=== PATIENT | male | born 1945 | race Caucasian/White ===

== ENCOUNTER → 2020-07-07 12:31 | Outpatient (CLI) | payer MEDICARE, OTHER, SELFPAY ==
[2020-07-07 13:19] LABS: Hemoglobin A1C% w Est Avg Glu 5.6 % (4.0-6.0)
[2020-07-07 14:02] LABS: Alanine Aminotransferase 29 IU/L (<50); Albumin 4.1 g/dL (3.5-5.0); Albumin Globulin Ratio 1.9 (1.0-2.8); Alkaline Phosphatase 69 U/L (38-126); Aspartate Aminotransferase 27 IU/L (17-59); Bilirubin Total 1.1 mg/dL (0.2-1.3); Blood Urea Nitrogen 22 mg/dL (9-20); Calcium 9.4 mg/dL (8.4-10.2); Carbon Dioxide 29 mmol/L (22-32); Chloride 106 mmol/L (98-107); Cholesterol 148 mg/dL (140-199); Estimated Glomerular Filt Rate > 60.0 mL/min (>60); Globulin 2.2 g/dL (1.7-4.1); Glucose 117 mg/dL (80-110); HDL Cholesterol 54 mg/dL (40-60); HEMOLYSIS < 15 (0-50); LDL Cholesterol Calculated 69 mg/dL (<100); Potassium 3.9 mmol/L (3.4-5.1); Sodium 138 mmol/L (137-145); Total Protein 6.3 g/dL (6.3-8.2); Triglycerides 123 mg/dL (35-150); Uric Acid 4.5 mg/dL (3.5-8.5)
[2020-07-07 16:16] LABS: Microalbumin Urine Random < 0.6 mg/dL (0-1.6)
== END ==
PROVIDERS: PCP Internal Medicine; Referring Provider Internal Medicine; Visit Provider Internal Medicine
DX: I10 Essential (primary) hypertension (principal); E78.5 Hyperlipidemia, unspecified; E11.9 Type 2 diabetes mellitus without complications; M10.9 Gout, unspecified
CPT/HCPCS: 36415; 80053; 80061; 82043; 82570; 83036; 84550

== ENCOUNTER → 2020-10-08 10:55 | Outpatient (CLI) | payer MEDICARE, OTHER, SELFPAY ==
[2020-10-08] MEDS: COVID-19 VACC #1, MRNA(MOD) 100 MCG/0.5 ML VIAL IM (10:58)
== END ==
PROVIDERS: PCP Internal Medicine; Visit Provider Internal Medicine
DX: Z23 Encounter for immunization (principal)
CPT/HCPCS: 0011A; 91301

== ENCOUNTER → 2020-11-05 12:07 | Outpatient (CLI) | payer MEDICARE, OTHER, SELFPAY ==
[2020-11-05] MEDS: COVID-19 VACC #2, MRNA(MOD) 100 MCG/0.5 ML VIAL IM (12:19)
== END ==
PROVIDERS: PCP Internal Medicine; Visit Provider Internal Medicine
DX: Z23 Encounter for immunization (principal)
CPT/HCPCS: 0012A; 91301

== ENCOUNTER → 2021-06-02 11:28 | Outpatient (CLI) | payer MEDICARE, OTHER, SELFPAY ==
--- NOTE | 2021-06-02 | DI.RAD.S_ITS ---
PROCEDURE: XR HAND LT MIN 3V INDICATIONS: left hand pain TECHNIQUE: 3 views of the hand(s) acquired. COMPARISON: None. FINDINGS: Bones: No fractures or dislocations. Carpal bones are normally aligned. No suspicious bony lesions. Severe 3rd PIP joint space narrowing with periarticular osteophyte formation. Central and juxta-articular lucencies are present and scattered juxta-articular lucencies are seen involving multiple interphalangeal joints. Soft tissues: No suspicious soft tissue calcifications. IMPRESSION: Severe 3rd PIP joint space narrowing and there are central and juxta-articular lucency suspicious for bony erosions and erosive erosions are also seen scattered throughout the interphalangeal joints. Inflammatory arthropathy cannot be excluded. Dictated by: Red Hyde [facility] Interpreted: Rob Pate MD on 06/02/2021 at 12:59 Transcribed by: MADI on 06/02/2021 at 13:01 Approved by: Rob Pate M.D. on 06/02/2021 at 17:21
== END ==
PROVIDERS: PCP Internal Medicine; Referring Provider Internal Medicine; Visit Provider Internal Medicine
DX: M79.642 Pain in left hand (principal)
CPT/HCPCS: 73130

== ENCOUNTER → 2021-09-05 09:25 | Outpatient (CLI) | payer MEDICARE, OTHER, SELFPAY ==
[2021-09-05 10:54] LABS: COVID19 -Nasal RAPID Negative (Negative)
== END ==
PROVIDERS: PCP Internal Medicine; Visit Provider Physician Assistant
DX: Z20.822 Contact with and (suspected) exposure to COVID-19 (principal)
CPT/HCPCS: 87635; C9803

== ENCOUNTER 2021-09-07 07:17 | Day surgery (SDC) | payer MEDICARE, OTHER, SELFPAY ==
--- NOTE | 2021-09-06 16:16 | PM.PREOP ---
Pre-operative Note COVID-19 COVID-19 status: Negative Interval Note History & Physical reviewed/Exam performed by Physician: Yes Changes to H&P: No H&P completed within 30 days and has changed as indicated here:: Fasting glucose is 111.
--- NOTE | 2021-09-06 16:17 | P.OP_ITS ---
Operative Date/Time/Diagnoses Date of procedure: 09/07/21 Time of procedure: 08:45 Procedure & Clinicians Procedure: Preoperative diagnoses: 1. Left complex surgery with use of capsular dye. 2. Mature or advanced nuclear sclerotic and cortical cataract with poor visibility of the anterior capsule increasing surgical risks of complications. 3. 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 4. Diabetes without retinopathy 5. Hypertension 6. Frozen right shoulder status post previous surgery Postoperative diagnoses: 1. Left Complex surgery with use of capsular dye, 2. Placement of a posterior chamber intraocular lens implant. Surgeon: Maria Fernanda Lamb MD Complications: none Specimen: None Implant: DIBOO+20.0 Blood loss: None Anesthesia: Retrobulbar with monitored standby. Description of procedure: Dictated by: Maria Fernanda Lamb MD Post operative diagnoses: 1. Left cataract removed with use of capsular dye . 2. Placement of a posterior chamber intraocular lens. Procedure: Phacoemulsification with posterior chamber intraocular lens implant Surgeon: Maria Fernanda Lamb MD Blood loss: None Anesthesia: Retrobulbar with monitored standby Description of procedure: Patient has presented with decreased vision due to cataract which is affecting activities of daily living especially driving. The patient wants surgery to improve vision. They understand the extra risk of surgery during the COVID-19 epidemic and wished to proceed. The patient has tested negative for active COVID-19 virus within 72 hours of the procedure. 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 The patient was taken to the operating room and given IV sedation. A retrobulbar block consisting of 6 cc of 2% xylocaine without epinephrine mixed half and half with 0.5% Marcaine with 1 cc of hyaluronidase added is placed between the medial and lateral 1/3 of the inferior orbital rim. He did require extra sedation and a peribulbar block was given for safety. Additionally topical lidocaine gel was placed on the surface of the eye for extra comfort. The eye is manually massaged for 30 sec, prepped using Betadine solution, and draped in the usual sterile fashion. Temporal approach was made, a 1 mm side-port incision was performed 90 degrees from the planned corneal wound. Phenylephrine 1.5% mixed with 1% xylocaine 0.2 cc was placed into the anterior chamber. An air bubble was placed and capsular blue dye was placed to improve visibility of the anterior capsule. The dye was irrigated out to reduce bubbles. Endocoat followed by Keri was then placed. A 2.6 mm clear incision with a 2.6 mm blade was placed. A 360 degree capsulorrhexis style capsulotomy was then performed with a cystitome needle on a Healon greatly aided by the capsular dye. Hydrodelineation and hydrodissection were performed. The phacoemulsification unit is introduced, and sculpting used to groove the central lens. It is then removed in chopping mode. Epi nucleus is removed with epinuclear mode and irrigation aspiration was used to remove the peripheral cortex. The posterior capsule is polished. He did have restless leg syndrome during the procedure as well as some slight chest discomfort extra relaxation medication was given with comfort. The intraocular lens is selected, inspected, power confirmed, and placed in the posterior chamber. The wound was stromally hydrated and tested for leaks, there was none and was left sutureless. Intracameral moxifloxacin 0.1 cc was placed into the anterior chamber. Kenalog 0.2 cc was placed in the superior subconjunctival space. A drop of antibiotic and was placed and the eye was patched and shielded. The patient was stable and returned to the recovery room in excellent condition. He had no chest discomfort after the procedure. Dictated by: Maria Fernanda Lamb MD Copy to: [facility] Same procedure as scheduled: Yes
[2021-09-07 07:55] VITALS: BP 140/74; PULSE 61; RESP 16; TEMP 36.8; O2SAT 99; BMI 25.1
[2021-09-07] MEDS: PROPARACAINE 0.5% OPHTH SOL 2 DROPS EYE-OP (08:00)
[2021-09-07] MEDS: CATARACT EYE COMPOUND (10 DROPS/SYRINGE) 3 DROPS EYE-OP (08:08)
[2021-09-07] MEDS: LIDOCAINE 2% 4 ML, BUPIVACAINE 0.5% (PF) 4 ML, HYALURONIDASE 150 UNIT INJ (09:09)
[2021-09-07] MEDS: ERYTHROMYCIN OPHTH 1 GM OINT 1 APPLIC EYE-LEFT (09:21)
[2021-09-07] MEDS: TRYPAN BLUE 0.5 ML SYRINGE INJ (09:22)
[2021-09-07] MEDS: MOXIFLOXACIN INJ 4 MG/0.8 ML VIAL 0.5 MG EYE-OP (09:22)
[2021-09-07] MEDS: HYALURONATE SODIUM 30 MG-10 MG/ML SYRINGES 1 BOX INTRAOCULA (09:22)
[2021-09-07] MEDS: TRIAMCINOLONE 50 MG/5 ML VIAL INJ (09:23)
[2021-09-07] MEDS: BALANCED SALT IRRIG SOLN NO.2 500 ML, EPINEPHrine 1 MG IRR (09:23)
[2021-09-07] MEDS: PHENYLEPHRINE/LIDOCAINE VIAL (OR) 0.2 ML EYE-OP (09:23)
[2021-09-07] MEDS: LIDOCAINE 2% (GLYDO) 6 ML GEL TOP (09:24)
[2021-09-07 09:50] VITALS: BP 136/78; PULSE 62; RESP 16; TEMP 36.4; O2SAT 97
== END 2021-09-07 10:17 | disposition home or self-care (01) ==
LOC: OR 07:19
PROVIDERS: PCP Internal Medicine; Referring Provider Ophthalmology; Visit Provider Ophthalmology
PROC: (CPT 66984; principal; 2021-09-07 08:45)
DX: H25.812 Combined forms of age-related cataract, left eye (principal); E11.9 Type 2 diabetes mellitus without complications; I10 Essential (primary) hypertension
CPT/HCPCS: 66984; 82962; J0171; J2250; J2704; J3010; J3301; J3470

== ENCOUNTER → 2021-09-28 12:14 | Outpatient (CLI) | payer MEDICARE, OTHER, SELFPAY ==
[2021-09-28 14:17] LABS: Prostate Specific Antigen Scrn 6.58 ng/mL (0.1-4.0)
== END ==
PROVIDERS: PCP Internal Medicine; Referring Provider Specialist; Visit Provider Specialist
DX: R97.20 Elevated prostate specific antigen [PSA] (principal)
CPT/HCPCS: 36415; 84153; G0103

== ENCOUNTER → 2021-10-31 10:02 | Outpatient (CLI) | payer MEDICARE, OTHER, SELFPAY ==
[2021-10-31 11:33] LABS: COVID19 -Nasal RAPID Negative (Negative)
== END ==
PROVIDERS: PCP Internal Medicine; Visit Provider Family Medicine Sleep Medicine
DX: Z20.822 Contact with and (suspected) exposure to COVID-19 (principal)
CPT/HCPCS: 87635; C9803

== ENCOUNTER 2021-11-14 13:13 | Emergency (ER) | payer MEDICARE, OTHER, SELFPAY ==
[2021-11-14 13:33] VITALS: BP 137/69; PULSE 56; RESP 16; TEMP 36.1; O2SAT 97; BMI 24.3
--- NOTE | 2021-11-14 13:35 | DI.CT.S_ITS ---
PROCEDURE: CT HEAD/BRAIN WO CON INDICATIONS: fall and hit head forehead TECHNIQUE: Noncontrast 4.5 mm thick angled axial sections acquired from the foramen magnum to the vertex, with coronal and sagittal reformats. For radiation dose reduction, the following was used: automated exposure control, adjustment of mA and/or kV according to patient size. COMPARISON: None. FINDINGS: Image quality: Excellent. CSF spaces: Basal cisterns are patent. No extra-axial fluid collections. Ventricles are normal in size and shape. Brain: No midline shift. No intracranial masses or hemorrhage. Kapoor-white matter interface is normal. Skull and face: Calvarium and visualized facial bones are intact, without suspicious lesions. Sinuses: Visualized sinuses and mastoids are clear. IMPRESSION: No acute intracranial pathology demonstrated. Dictated by: Dylon Aj M.D. on 11/14/2021 at 13:52 Approved by: Dylon Aj M.D. on 11/14/2021 at 13:53
[2021-11-14 16:33] VITALS: BP 135/85; PULSE 60; RESP 16; O2SAT 97
--- NOTE | 2021-11-14 16:33 | ED.FALL ---
HPI - Fall <Isidro Yin PA-C - Last Filed: 11/14/21 16:48> General Chief Complaint: Fall Stated Complaint: Fall, Hit Head Time Seen by Provider: 11/14/21 15:24 History of Present Illness HPI Narrative: 76-year-old male presents to the ED status post a head injury sustained prior to arrival today. Patient states he was hiking with his , when he sustained a mechanical trip and fall over some zena. Patient had a head strike to the right parietal side of the head. Denies loss of consciousness. Patient is not on blood thinners. Patient's tetanus is current. Patient endorses some abrasions to his right hand and right elbow. Denies the numbness, tingling, weakness. Denies nausea, vomiting. Denies lightheadedness, dizziness, syncope. Related Data Home Medications Medication Instructions Recorded Confirmed allopurinol PO 08/18/21 10/05/21 atorvastatin 40 mg tablet 40 mg PO DAILY 08/18/21 10/05/21 cholecalciferol (vitamin D3) 125 125 mcg PO DAILY 08/18/21 10/05/21 mcg (5,000 unit) capsule colchicine 0.6 mg capsule 0.6 mg PO DAILY 08/18/21 10/05/21 metformin 500 mg tablet 500 mg PO BID 08/18/21 10/05/21 metoprolol succinate 25 mg 25 mg PO DAILY 08/18/21 10/05/21 tablet,extended release 24 hr lisinopril-hydrochlorothiazide 20 mg PO 09/07/21 10/05/21 Allergies Allergy/AdvReac Type Severity Reaction Status Date / Time No Known Drug Allergies Allergy Unverified 10/05/21 14:36 Review of Systems <Isidro Yin PA-C - Last Filed: 11/14/21 16:48> Review of Systems Narrative: Head injury to right-side of head. Abrasions on right hand and right elbow. No numbness, tingling, weakness fever ROS Unobtainable: All systems reviewed & are unremarkable except as noted in HPI and below Constitutional Constitutional: Denies chills, Denies fatigue, Denies fever(s), Denies frequent falls, Denies lethargy and Denies weakness Eyes Eyes: Denies change in vision, Denies eye discharge, Denies irritation and Denies loss of vision ENT Ears, Nose, Mouth, and Throat: Denies change in voice, Denies dizziness, Denies neck pain, Denies sore throat and Denies throat swelling Cardiovascular Cardiovascular: Denies chest pain, Denies irregular heart rhythm, Denies lightheadedness, Denies palpitations, Denies dyspnea, Denies dyspnea on exertion and Denies orthopnea Respiratory Respiratory: Denies cough, Denies dyspnea, Denies dyspnea on exertion and Denies wheezing Gastrointestinal Gastrointestinal: Denies abdominal pain, Denies change in bowel habits, Denies diarrhea, Denies nausea and Denies vomiting Genitourinary Genitourinary: Denies hematuria, Denies flank pain, Denies urinary incontinence and Denies urinary urgency Musculoskeletal Musculoskeletal: Denies back pain, Denies muscle weakness, Denies neck pain, Denies numbness and Denies tingling Integumentary/Breasts Skin/Breast: Denies pruritus, Denies erythema, Denies rash and Denies wounds Neurologic Neurologic: Denies behavioral changes, Denies confusion, Denies dizziness, Denies frequent falls, Denies loss of vision, Denies numbness, Denies tingling and Denies weakness Psychiatric Psychiatric: Denies anxiety, Denies behavioral changes, Denies confusion, Denies depression, Denies homicidal ideation and Denies suicidal ideation Endocrine Endocrine: Denies fatigue, Denies flushing and Denies palpitations Hematologic/Lymphatic Hematologic/Lymphatic: Denies easy bruising Allergic/Immunologic Allergic/Immunologic: Denies urticaria, Denies throat swelling and Denies wheezing Patient History <Isidro Yin PA-C - Last Filed: 11/14/21 16:48> Medical History Arthritis BPH w urinary obs/LUTS Diabetes Elevated PSA Gout Hypercholesteremia Hypertension Male circumcision Surgical History H/O repair of rotator cuff Family History Father Cancer Social History household members: spouse Smoking Status: Former smoker alcohol intake: current Smoking Status: Former smoker alcohol intake frequency: 0-2 drinks per day Substance Use Type: marijuana Exam <Isidro Yin PA-C - Last Filed: 11/14/21 16:48> Initial Vital Signs Initial Vital Signs: Vital Signs Temperature 97.0 F L 11/14/21 13:33 Pulse Rate 56 L 11/14/21 13:33 Respiratory Rate 16 11/14/21 13:33 Blood Pressure 137/69 11/14/21 13:33 Pulse Oximetry 97 11/14/21 13:33 Const General: cooperative, healthy appearing and comfortable [facility] Head: abrasion, No Sepulveda's sign, No hematoma, No laceration, No palpable skull fracture and No raccoon eyes Ears: hearing grossly normal bilaterally Nose: external nose normal Face and sinus: normal facial exam Throat: posterior oropharynx normal Eyes General: appearance normal, both eyes and all related structures Neck Neck: normal visual inspection Chest Chest: normal inspection of the chest Resp Effort & Inspection: normal respiratory effort Auscultation: clear to auscultation bilaterally Cardio Rate: regular rate Rhythm: regular rhythm Back/Spine/Pelvis Other: No midline tenderness to palpation. Neuro General: patient alert, patient awake, patient oriented x3 and CN's II-XI intact bilaterally Cranial Nerves: PERRL Gait: normal gait Motor: muscle tone normal throughout Sensory Exam: no sensory deficits noted Psych Appearance: grossly normal Mental Status: mental status grossly normal Course <CHARLETTE Cole Last Filed: 11/14/21 16:48> Orders Ordered: ED Orders 11/14/21 13:35 CT head/brain wo con Stat Vital Signs Vital signs: Vital Signs - 8 hr 11/14/21 16:33 Pulse Rate 60 Respiratory Rate 16 Blood Pressure 135/85 Pulse Oximetry 97 MDM - Fall <CHARLETTE Cole Last Filed: 11/14/21 16:48> Imaging Data CT scan - head: Radiologist's Impression: PROCEDURE:? CT HEAD/BRAIN WO CON ? INDICATIONS:? fall and hit head forehead ? TECHNIQUE:? Noncontrast 4.5 mm thick angled axial sections acquired from the foramen magnum to the vertex, with coronal and sagittal reformats.? For radiation dose reduction, the following was used:? automated exposure control, adjustment of mA and/or kV according to patient size.? ? COMPARISON:? None. ? FINDINGS:? Image quality:? Excellent.? ? CSF spaces:? Basal cisterns are patent.? No extra-axial fluid collections.? Ventricles are normal in size and shape.? ? Brain:? No midline shift.? No intracranial masses or hemorrhage.? Kapoor-white matter interface is normal.? ? Skull and face:? Calvarium and visualized facial bones are intact, without suspicious lesions.? ? Sinuses:? Visualized sinuses and mastoids are clear.? ? IMPRESSION:? No acute intracranial pathology demonstrated. ? ? Dictated by: Dylon Aj M.D. on 11/14/2021 at 13:52 ? ? Approved by: Dylon Aj M.D. on 11/14/2021 at 13:53 ? MDM Narrative Medical decision making narrative: 76-year-old male presents to the ED status post a head injury sustained prior to arrival today. Patient states he was hiking with his , when he sustained a mechanical trip and fall over some zena. Concern for intracranial hemorrhage versus fractures versus concussion. Head CT does not show acute findings. Counseled patient on concussion. ED return precautions discussed. Patient verbalized understanding. Discharge patient home. Discharge Plan Departure Patient Disposition: Home Clinical Impression: Head injury Instructions: DI for Concussion, How to Prevent Falls Activity Restrictions/Additional Instructions: You were evaluated in the ED today for a head injury. Your CT head did not show any fractures or brain bleeds. Your symptoms are likely due to a concussion. We recommend both cognitive and physical rest for the next few days until your symptoms resolved. It is common for people with concussions to experience intermittent or sporadic vomiting, headache, fatigue, sleepiness, irritability, depression. Please follow-up with your PCP as soon as possible for postconcussion management. Please return to the ED if you have uncontrollable nausea and vomiting, worsening headache, confusion, change in mental status. Prescriptions: No Action lisinopril-hydrochlorothiazide 20 mg PO 0RF Rx Instructions: 20/25 mg. Patient takes half dose allopurinol PO 0RF colchicine 0.6 mg capsule 0.6 mg PO DAILY 0RF metformin 500 mg tablet 500 mg PO BID 0RF atorvastatin 40 mg tablet 40 mg PO DAILY 0RF metoprolol succinate 25 mg tablet extended release 24 hr 25 mg PO DAILY 0RF cholecalciferol (vitamin D3) 125 mcg (5,000 unit) capsule 125 mcg PO DAILY 0RF Referrals: Brock Ford MD [Primary Care Provider] -
== END 2021-11-14 16:15 | disposition home or self-care (01) ==
PROVIDERS: Emergency Provider Student in an Organized Health Care Education/Training Program; PCP Internal Medicine
DX: S09.90XA Unspecified injury of head, initial encounter (principal); Z87.891 Personal history of nicotine dependence; W18.09XA Striking against other object with subsequent fall, initial encounter; Y93.01 Activity, walking, marching and hiking
CPT/HCPCS: 70450; 99283; 99284

== ENCOUNTER → 2021-11-18 10:27 | Outpatient (CLI) | payer MEDICARE, OTHER, SELFPAY ==
[2021-11-18 13:50] LABS: COVID19 -Nasal RAPID Negative (Negative)
== END ==
PROVIDERS: PCP Internal Medicine; Visit Provider Nurse Practitioner Family
DX: Z20.822 Contact with and (suspected) exposure to COVID-19 (principal)
CPT/HCPCS: 87635; C9803

== ENCOUNTER 2021-11-21 06:31 | Day surgery (SDC) | payer MEDICARE, OTHER, SELFPAY ==
--- NOTE | 2021-10-31 17:41 | PM.PREOP ---
Pre-operative Note COVID-19 COVID-19 status: Negative Criteria for continued procedure: Expected advancement of disease process, Possibility delay results in more complex future surgery or treatment, Increased loss of function, Delay expected to result in less-positive ultimate med/surg outcome and Non-surgical alternatives not available or appropriate per current SOC Interval Note History & Physical reviewed/Exam performed by Physician: Yes Changes to H&P: No H&P completed within 30 days and has changed as indicated here:: Holding prostate medication for surgery. Improved shoulder function. Glucose fasting is 108.
--- NOTE | 2021-10-31 17:41 | PM.OP.1 ---
Operative Date/Time/Diagnoses Date of procedure: 11/21/21 Time of procedure: 07:45 Procedure & Clinicians Procedure: Preoperative diagnoses: 1. Right complex surgery with use of capsular dye. 2. Mature or advanced nuclear sclerotic and cortical cataract with poor visibility of the anterior capsule increasing surgical risks of complications. 3. Prostate sympathomemetic medications increasing the risk of floppy iris syndrome. 4. Restless leg syndrome at previous cataract surgery. 5. Recent right shoulder surgery. Postoperative diagnoses: 1Right Complex surgery with use of capsular dye, 2. Placement of a posterior chamber intraocular lens implant. Surgeon: Maria Fernanda Lamb MD Complications: none Specimen: None Implant: DIBOO+19.5 Blood loss: None Anesthesia: Retrobulbar with monitored standby. Description of procedure: Dictated by: Maria Fernanda Lamb MD Post operative diagnoses: 1. Right cataract removed with use of capsular dye . 2. Placement of a posterior chamber intraocular lens. 3. 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 4. Diabetes without retinopathy 5. Prostatic hypertrophy requiring treatment 6. Hypertension 7. Recent re-operation for right shoulder restriction after previous surgery, now improved 8. Restless leg syndrome Procedure: Complex Phacoemulsification with posterior chamber intraocular lens implant Surgeon: Maria Fernanda Lamb MD Blood loss: None Anesthesia: Retrobulbar with monitored standby Description of procedure: Patient is a diabetic who has presented with decreased vision due to cataract which is affecting activities of daily living especially driving. The patient wants surgery to improve vision. He understands the extra risk of surgery during the COVID-19 epidemic and wished to proceed. He has difficulty driving and with imbalance since his recent left cataract surgery. This surgery has been delayed due to recent shoulder surgery and COVID restrictions. It was further delayed by the hospital due to a shortage of necessary intraoperative medications needed and humidity problems. All needed supplies are now available and he wishes to proceed as he need to be started on prostate medications which will increase his introperative risk of floppy iris. He has been limiting his prostate medication as he is floppy iris syndrome and he would like to resume these as soon as possible. The patient has tested negative for active COVID-19 virus within 72 hours of the procedure. He also had restless leg syndrome during his last surgery. The patient was taken to the operating room and given IV sedation. A retrobulbar block consisting of 6 cc of 2% xylocaine without epinephrine mixed half and half with 0.5% Marcaine with 1 cc of hyaluronidase added is placed between the medial and lateral 1/3 of the inferior orbital rim. The eye is manually massaged for 30 sec, prepped using Betadine solution, and draped in the usual sterile fashion. Temporal approach was made, a 1 mm side-port incision was performed 90 degrees from the planned corneal wound. Phenylephrine 1.5% mixed with 1% xylocaine 0.2 cc was placed into the anterior chamber. [An air bubble was placed and capsular blue dye was placed to improve visibility of the anterior capsule. The dye was irrigated out to reduce bubbles. ]Endocoat followed by Healon was then placed. A 2.6 mm clear incision with a 2.6 mm blade was placed. A 360 degree capsulorrhexis style capsulotomy was then performed with a cystitome needle on a Healon greatly aided by the capsular dye. Hydrodelineation and hydrodissection were performed. The phacoemulsification unit is introduced, and sculpting used to groove the central lens. It is then removed in chopping mode. Epi nucleus is removed with epinuclear mode and irrigation aspiration was used to remove the peripheral cortex. The posterior capsule is polished. The intraocular lens is selected, inspected, power confirmed, and placed in the posterior chamber. The wound was stromally hydrated and tested for leaks, there was none and was left sutureless. Intracameral moxifloxacin 0.1 cc was placed into the anterior chamber. Kenalog 0.2 cc was placed in the superior subconjunctival space. A drop of antibiotic and was placed and the eye was patched and shielded. The patient was stable and returned to the recovery room in excellent condition. Dictated by: Maria Fernanda Lamb MD Copy to: [facility] cataract Same procedure as scheduled: Yes
--- NOTE | 2021-10-31 17:46 | PM.PREOP ---
Pre-operative Note Interval Note H&P completed within 30 days and has changed as indicated here:: Fasting glucose is
--- NOTE | 2021-11-20 17:18 | P.HP_ITS ---
History of Present Illness History of Present Illness Date Patient Seen: 11/21/21 Time Patient Seen: 07:15 Date of Onset of Symptoms: 09/19/20 Chief complaint: RIGHT CATARACT Narrative: Patient is a 76-year-old male who has had rapid decrease in vision in his right the last 1-2 years. He feels he is having difficulty with glare and driving and also unequal vision since his left cataract surgery several months ago. This surgery was postponed due to the need for shoulder surgery revision which she has now undergone successfully as well as several delays due to restrictions in surgery due to COVID 19 protocols as well as intraoperative medications shortages. He is to require increased prostatic sympathomimetic medications which will increase his surgical risk with further delay and he wishes to proceed. He is a diabetic with high cholesterol and hypertension and also enlarged prostate. He has taken medications which increases risk at cataract surgery by causing floppy iris. He also had restless legs syndrome and is previous surgery. He is a former s smoker. He has no significant family history he does not follow his glucose closely and is going to be checked for him at the time of surgery. His current vision is 2100 right eye without correction with pinhole to 20 40 left eye 2019 5+2 with and without correction pupils are normal intra-ocular pressure is 14 right eye 13 left eye there was no corneal stain he has advanced right cataract with 3+ nuclear sclerosis and cortical changes. Left eye pseudophakia he dilates well his cup-to-disc is 0.3 in both eyes he has no diabetic retinopathy he has no macro grade distortion testing was done showing no macular edema in either eye and need for an intra- ocular lens with his requested distance target. He understands there is risk of floppy iris which could cause him to have an irregular pupil or other complications and that they are now 2020 guarantees after surgery. He wishes to proceed. His medications are lisinopril 40 mg a day colchicine 0.6 mg a day al lopurinol 300 mg a day metformin 500 mg a day metoprolol succinate ER 25 mg a day atorvastatin 40 mg a day lisinopril 20-25 mg a day of fuse is in which he started August 18, 2021 10 mg a day diclofenac preoperative drop right eye 4 times a day TobraDex eye drop right eye twice a day due to sensitivity to previous eye drops. Review of systems shows improved range of motion right shoulder after repeat surgery for adhesions no further shoulder procedures planned. Surgical plan is complex right cataract surgery with probable capsular dye and possible [place] ring with retrobulbar anesthetic. A distance intra- ocular target is chosen after IOL measurements in the office. Patient History Medical History Arthritis BPH w urinary obs/LUTS Diabetes Elevated PSA Gout Hypercholesteremia Hypertension Male circumcision Surgical History H/O repair of rotator cuff Family & Social History Family History Father Cancer Social History: household members spouse Tobacco & Substance use: Smoking Status Former smoker alcohol intake current alcohol intake frequency 0-2 drinks per day Substance Use Type marijuana Meds Home Medications and Allergies Home Medications Medication Instructions Recorded Confirmed Type allopurinol PO 08/18/21 10/05/21 History atorvastatin 40 mg tablet 40 mg PO DAILY 08/18/21 10/05/21 History cholecalciferol (vitamin D3) 125 125 mcg PO DAILY 08/18/21 10/05/21 History mcg (5,000 unit) capsule colchicine 0.6 mg capsule 0.6 mg PO DAILY 08/18/21 10/05/21 History metformin 500 mg tablet 500 mg PO BID 08/18/21 10/05/21 History metoprolol succinate 25 mg 25 mg PO DAILY 08/18/21 10/05/21 History tablet,extended release 24 hr lisinopril-hydrochlorothiazide 20 mg PO 09/07/21 10/05/21 History Allergies Allergy/AdvReac Type Severity Reaction Status Date / Time No Known Drug Allergies Allergy Unverified 10/05/21 14:36 Assessment & Plan Time Spent With Patient Critical Care time: I spent a total of [] minutes of critical care time on this patient's care today; this time is exclusive of procedural time.
[2021-11-21] MEDS: PROPARACAINE 0.5% OPHTH SOL 2 DROPS EYE-OP (06:55)
[2021-11-21] MEDS: CATARACT EYE COMPOUND (10 DROPS/SYRINGE) 3 DROPS EYE-OP (06:55)
[2021-11-21 07:13] VITALS: BP 141/77; PULSE 56; RESP 18; TEMP 36.5; O2SAT 100; BMI 25.1
[2021-11-21] MEDS: HYALURONATE SODIUM 30 MG-10 MG/ML SYRINGES 1 BOX INTRAOCULA (08:19)
[2021-11-21] MEDS: PHENYLEPHRINE/LIDOCAINE VIAL (OR) 0.2 ML EYE-OP (08:20)
[2021-11-21] MEDS: MOXIFLOXACIN INJ 4 MG/0.8 ML VIAL 0.5 MG EYE-OP (08:20)
[2021-11-21] MEDS: TRIAMCINOLONE 50 MG/5 ML VIAL INJ (08:21)
[2021-11-21] MEDS: LIDOCAINE 2% 4 ML, BUPIVACAINE 0.5% (PF) 4 ML, HYALURONIDASE 150 UNIT INJ (08:22)
[2021-11-21] MEDS: BALANCED SALT IRRIG SOLN NO.2 500 ML, EPINEPHrine 1 MG IRR (08:23)
[2021-11-21] MEDS: ERYTHROMYCIN OPHTH 1 GM OINT 1 APPLIC EYE-RIGHT (08:24)
[2021-11-21] MEDS: TRYPAN BLUE 0.5 ML SYRINGE INJ (08:24)
[2021-11-21 08:45] VITALS: BP 139/61; PULSE 68; RESP 16; TEMP 36.6; O2SAT 100
[2021-11-21 08:59] VITALS: BP 133/66; PULSE 58; RESP 16; TEMP 36.3; O2SAT 100
--- NOTE | 2021-11-21 09:53 | SUR.PHASEII ---
0900 Patient ready for discharge. called at 0850. She said she has some errands and will try to leave soon.
== END 2021-11-21 09:45 | disposition home or self-care (01) ==
LOC: OR 06:32
PROVIDERS: PCP Internal Medicine; Referring Provider Ophthalmology; Visit Provider Ophthalmology
PROC: (CPT 66984; principal; 2021-11-21 07:45)
DX: H25.811 Combined forms of age-related cataract, right eye (principal); G25.81 Restless legs syndrome; E11.9 Type 2 diabetes mellitus without complications; N40.0 Benign prostatic hyperplasia without lower urinary tract symptoms; I10 Essential (primary) hypertension; Z79.84 Long term (current) use of oral hypoglycemic drugs; Z79.899 Other long term (current) drug therapy
CPT/HCPCS: 66984; 82962; J0171; J2250; J2704; J3010; J3301; J3470

== ENCOUNTER → 2022-01-04 15:34 | Outpatient (CLI) | payer MEDICARE, OTHER, SELFPAY ==
--- NOTE | 2022-01-04 15:38 | DI.MRI.S_ITS ---
PROCEDURE: MR PELIS WO/W CON INDICATIONS: BPH TECHNIQUE: Coronal HASTE, axial T1 FSE with fat saturation, 3-plane nonbreath-hold T2 FSE. After the administration of contrast, dynamic axial, delayed axial and coronal VIBE or 2-D FLASH with fat saturation through the pelvis. Optional diffusion weighted imaging and ADC may be performed. COMPARISON: None. FINDINGS: Image quality: Diffusion weighted and dynamic contrast enhanced images are diagnostic. A few sequences degraded by artifact. Prostate: Gland size is 4.4 x 4.1 x 3.6 cm; ellipsoid gland volume is 34 mL. No foci of intrinsic T1 hyperintense signal to suggest hemorrhage. There are small BPH nodules. No significant foci of ADC hypointensity in the transitional zone. No suspicious foci of T2 hypointense signal. No PI-RADS 4 or 5 observations. Genitourinary system: Bladder wall thickness is normal. Distal ureters are non distended. Bowel and peritoneum: No pathologic free pelvic fluid. Inferior colon and small bowel loops are normal in caliber. Nodes and vessels: No pelvic or inguinal adenopathy by size criteria. Iliac vessels are normal in caliber. Soft tissues: Probable fat containing right inguinal hernia. Bones: Marrow demonstrates normal overall signal, without lesions to suggest metastases. IMPRESSION: 1. No PI-RADS 4 or 5 observations. 2. No adenopathy. 3. Prominent prostate gland. Dictated by: Stevo Joshi M.D. on 01/04/2022 at 17:50 Approved by: Stevo Joshi M.D. on 01/04/2022 at 17:57
== END ==
PROVIDERS: PCP Internal Medicine; Referring Provider Specialist; Visit Provider Specialist
DX: N40.1 Benign prostatic hyperplasia with lower urinary tract symptoms (principal); N13.8 Other obstructive and reflux uropathy; R97.20 Elevated prostate specific antigen [PSA]
CPT/HCPCS: 72197; A9579

== ENCOUNTER → 2022-01-13 14:09 | Outpatient (CLI) | payer MEDICARE, OTHER, SELFPAY ==
[2022-01-13 15:32] LABS: Prostate Specific Antigen 5.16 ng/mL (0.10-4.00)
== END ==
PROVIDERS: PCP Internal Medicine; Referring Provider Specialist; Visit Provider Specialist
DX: R97.20 Elevated prostate specific antigen [PSA] (principal)
CPT/HCPCS: 36415; 84153

== ENCOUNTER → 2022-02-07 08:04 | Outpatient (CLI) | payer MEDICARE, OTHER, SELFPAY ==
--- NOTE | 2022-02-07 | DI.US.S_ITS ---
PROCEDURE: US ABDOMEN COMPLETE INDICATIONS: ABDOMINAL PAIN TECHNIQUE: Real-time scanning was performed of the abdominal and retroperitoneal organs, with image documentation. COMPARISON: None. FINDINGS: Liver: Liver is normal in size and homogeneous in echotexture. Gallbladder: Gallbladder is sonographically normal. No gallstones. No gallbladder wall thickening. No pericholecystic fluid. No sonographic Carvajal sign. Biliary ducts: Intrahepatic bile ducts are non-dilated. Extrahepatic bile duct caliber measures 4.4 mm. Normal is 6-7 mm or less in diameter, or 10 mm or less post-cholecystectomy. Pancreas: Not visualized due to bowel gas and cannot be evaluated. Spleen: Spleen is normal in size and homogeneous in echotexture. Kidneys: Kidneys are normal in size and echotexture. Right kidney measures 11.0 cm long; left kidney measures 11.0 cm long. No hydronephrosis or nephrolithiasis. No solid masses. Aorta: Visualized aorta is normal in caliber at less than 3 cm. Iliacs: Proximal common iliac arteries are normal in caliber at less than 2.5 cm. IVC: Intrahepatic inferior vena cava is patent. Miscellaneous: No free abdominal fluid. IMPRESSION: Normal abdominal sonogram. Pancreas is obscured by bowel gas and cannot be event Dictated by: Abbey Brown MD, PhD on 02/07/2022 at 11:16 Approved by: Abbey Brown MD, PhD on 02/07/2022 at 11:17
== END ==
PROVIDERS: PCP Internal Medicine; Referring Provider Internal Medicine; Visit Provider Internal Medicine
DX: R10.12 Left upper quadrant pain (principal)
CPT/HCPCS: 76700

== ENCOUNTER → 2022-04-17 10:00 | Outpatient (CLI) | payer MEDICARE, OTHER, SELFPAY ==
[2022-04-17 13:50] LABS: Prostate Specific Antigen 5.79 ng/mL (0.10-4.00)
== END ==
PROVIDERS: PCP Internal Medicine; Referring Provider Specialist; Visit Provider Specialist
DX: R97.20 Elevated prostate specific antigen [PSA] (principal)
CPT/HCPCS: 36415; 84153

== ENCOUNTER → 2022-07-13 09:55 | Outpatient (CLI) | payer MEDICARE, OTHER, SELFPAY ==
--- NOTE | 2022-07-13 | DI.CT.S_ITS ---
PROCEDURE: CT ABDOMEN PELVIS WO CON INDICATIONS: Unspecified abdominal pain TECHNIQUE: Noncontrast 5 mm thick sections acquired from the diaphragms to the symphysis. 5 mm coronal and sagittal reformats were then performed. For radiation dose reduction, the following was used: automated exposure control, adjustment of mA and/or kV according to patient size. COMPARISON: None. FINDINGS: Image quality: Excellent. ABDOMEN: Lung bases: Lung bases are clear. Heart size is normal. Moderate coronary artery calcification. Solid organs: Liver is normal in size. Gallbladder is normal. . Pancreas is normal in contours. Spleen is normal in size. No adrenal nodules. Kidneys are normal in size, without hydronephrosis or nephrolithiasis. Indeterminate subcentimeter hyperdensity in the upper pole of the right kidney. Peritoneum and bowel: Stomach and small bowel loops are normal. There is a normal appendix. Slightly increased quantity of stool present throughout the colon. No inflammation or suspicious wall thickening. No free fluid or free air. Nodes and vessels: No retroperitoneal or mesenteric adenopathy by size criteria. Aorta and inferior vena cava are normal in caliber. Moderate abdominal aortic atherosclerotic calcification. Miscellaneous: Tiny fat containing umbilical hernia. PELVIS: Genitourinary: Bladder wall thickness is normal. Mild prostatomegaly. Miscellaneous: Tiny fat containing right inguinal hernia. Bones: Degenerative disc and endplate changes L4-5 and L5-S1, degenerative changes in the sacroiliac joints and bilateral femoroacetabular joints. IMPRESSION: 1. No acute process. 2. Mild obstipation. 3. Incidental right upper pole renal parenchymal density this may be a hyperdense cyst or calcification. Unlikely clinical significance. Dictated by: Peggy Calle M.D. on 07/13/2022 at 15:54 Approved by: Peggy Calle M.D. on 07/13/2022 at 16:00
== END ==
PROVIDERS: PCP Internal Medicine; Referring Provider Internal Medicine; Visit Provider Internal Medicine
DX: R10.9 Unspecified abdominal pain (principal); G89.29 Other chronic pain; K59.00 Constipation, unspecified
CPT/HCPCS: 74176

== ENCOUNTER → 2022-07-14 12:58 | Outpatient (CLI) | payer MEDICARE, OTHER, SELFPAY ==
[2022-07-14 14:58] LABS: Prostate Specific Antigen 5.91 ng/mL (0.10-4.00)
== END ==
PROVIDERS: PCP Internal Medicine; Referring Provider Specialist; Visit Provider Specialist
DX: R97.20 Elevated prostate specific antigen [PSA] (principal)
CPT/HCPCS: 36415; 84153

== ENCOUNTER → 2022-10-12 13:17 | Outpatient (CLI) | payer MEDICARE, OTHER, SELFPAY ==
[2022-10-13 07:36] LABS: PSA Free % 11.8 % (.); PSA, Total 6.2 ng/mL (0.0-4.0)
== END ==
PROVIDERS: PCP Internal Medicine; Referring Provider Specialist; Visit Provider Specialist
DX: N13.8 Other obstructive and reflux uropathy (principal); N40.1 Benign prostatic hyperplasia with lower urinary tract symptoms; R97.20 Elevated prostate specific antigen [PSA]
CPT/HCPCS: 36415; 84153; 84154

== ENCOUNTER → 2022-10-23 16:32 | Outpatient (CLI) | payer MEDICARE, OTHER, SELFPAY ==
[2022-10-23 16:54] LABS: Add Manual Diff / Slide Review NO; Basophils Absolute Auto 0 /uL (0-100); Basophils Percent Auto 0.8 % (0-2); Eosinophils Absolute Auto 200 /uL (0-450); Eosinophils Percent Auto 4.2 % (2-4); Hematocrit 42.4 % (41-53); Hemoglobin 14.2 g/dL (13.5-17.5); Lymphocytes Absolute Auto 1400 /uL (1100-4500); Lymphocytes Percent Auto 25.5 % (25-40); Mean Corpuscular HGB Conc 33.5 % (30-36); Mean Corpuscular Hemoglobin 31.9 PG (26-34); Monocytes Absolute Auto 400 /uL (0-900); Monocytes Percent Auto 6.7 % (3-14); Neutrophils Absolute Auto 3400 /uL (1500-7000); Neutrophils Percent Auto 62.8 % (50-75); Platelet Count 174 X10^3/uL (150-400); Red Blood Cell Count 4.46 X10^6/uL (4.5-5.9); Red Cell Distribution Width 13.4 % (11.6-14.8); White Blood Cell Count 5.4 X10^3/uL (4.5-11.0)
[2022-10-23 17:09] LABS: Hemoglobin A1C% w Est Avg Glu 5.5 % (4.0-6.0)
[2022-10-23 17:10] LABS: Alanine Aminotransferase 21 IU/L (<50); Alkaline Phosphatase 74 U/L (38-126); Aspartate Aminotransferase 21 IU/L (17-59); Blood Urea Nitrogen 18 mg/dL (9-20); Calcium 9.3 mg/dL (8.4-10.2); Carbon Dioxide 28 mmol/L (22-32); Chloride 106 mmol/L (98-107); Cholesterol 144 mg/dL (140-199); Estimated Glomerular Filt Rate > 60 mL/min (>60); Glucose 190 mg/dL (80-110); HDL Cholesterol 67 mg/dL (40-60); HEMOLYSIS < 15 (0-50); LDL Cholesterol Calculated 47 mg/dL (<100); Potassium 3.7 mmol/L (3.4-5.1); Sodium 140 mmol/L (137-145); Triglycerides 150 mg/dL (35-150); Uric Acid 3.6 mg/dL (3.5-8.5)
== END ==
PROVIDERS: PCP Family Medicine; Referring Provider Family Medicine; Visit Provider Family Medicine
DX: E78.5 Hyperlipidemia, unspecified (principal); R73.01 Impaired fasting glucose; I10 Essential (primary) hypertension; M10.9 Gout, unspecified
CPT/HCPCS: 36415; 80053; 80061; 83036; 84550; 85025

== ENCOUNTER → 2023-06-01 11:54 | Outpatient (CLI) | payer MEDICARE, OTHER, SELFPAY ==
[2023-06-01 12:59] LABS: Add Manual Diff / Slide Review NO; Basophils Absolute Auto 100 /uL (0-100); Basophils Percent Auto 1.2 % (0-2); Eosinophils Absolute Auto 200 /uL (0-450); Eosinophils Percent Auto 4.3 % (2-4); Hematocrit 41.8 % (41-53); Hemoglobin 14.2 g/dL (13.5-17.5); Lymphocytes Absolute Auto 1100 /uL (1100-4500); Lymphocytes Percent Auto 25.4 % (25-40); Mean Corpuscular Hemoglobin 32.4 PG (26-34); Mean Corpuscular Volume 95.4 fL (80-100); Monocytes Absolute Auto 400 /uL (0-900); Monocytes Percent Auto 8.9 % (3-14); Neutrophils Absolute Auto 2700 /uL (1500-7000); Neutrophils Percent Auto 60.2 % (50-75); Platelet Count 164 X10^3/uL (150-400); Red Blood Cell Count 4.37 X10^6/uL (4.5-5.9); Red Cell Distribution Width 13.2 % (11.6-14.8); White Blood Cell Count 4.4 X10^3/uL (4.5-11.0)
[2023-06-01 13:15] LABS: Alanine Aminotransferase 21 IU/L (<50); Albumin 4.2 g/dL (3.5-5.0); Alkaline Phosphatase 64 U/L (38-126); Aspartate Aminotransferase 22 IU/L (17-59); BUN Creatinine Ratio 26.8 (6-22); Bilirubin Total 0.8 mg/dL (0.2-1.3); Blood Urea Nitrogen 15 mg/dL (9-20); Calcium 9.8 mg/dL (8.4-10.2); Carbon Dioxide 27 mmol/L (22-32); Chloride 104 mmol/L (98-107); Estimated Glomerular Filt Rate > 60 mL/min (>60); Globulin 2.1 g/dL (1.7-4.1); Glucose 119 mg/dL (80-110); HEMOLYSIS < 15 (0-50); Sodium 137 mmol/L (137-145); Total Protein 6.3 g/dL (6.3-8.2)
[2023-06-01 13:21] LABS: Hemoglobin A1C% w Est Avg Glu 5.2 % (4.0-6.0)
[2023-06-01 13:44] LABS: TSH w/ Reflex to FT4 0.83 uIU/mL (0.47-4.68)
[2023-06-01 14:01] LABS: Vitamin B12 196 pg/mL (239-931)
[2023-06-01 15:15] LABS: Microalbumin Urine Random < 0.6 mg/dL (0-1.6)
== END ==
PROVIDERS: PCP Family Medicine; Referring Provider Family Medicine; Visit Provider Family Medicine
DX: E11.9 Type 2 diabetes mellitus without complications (principal); M10.9 Gout, unspecified; I10 Essential (primary) hypertension
CPT/HCPCS: 36415; 80053; 82043; 82570; 82607; 83036; 84443; 85025

== ENCOUNTER → 2023-11-09 12:27 | Outpatient (CLI) | payer MEDICARE, OTHER, SELFPAY ==
[2023-11-09 14:42] LABS: Hemoglobin A1C% w Est Avg Glu 5.7 % (4.0-6.0)
[2023-11-09 14:59] LABS: BUN Creatinine Ratio 31.1 (6-22); Blood Urea Nitrogen 19 mg/dL (9-20); Calcium 9.8 mg/dL (8.4-10.2); Carbon Dioxide 29 mmol/L (22-32); Chloride 106 mmol/L (98-107); Estimated Glomerular Filt Rate > 60 mL/min (>60); Glucose 117 mg/dL (80-110); HEMOLYSIS < 15 (0-50); Potassium 4.1 mmol/L (3.4-5.1); Sodium 141 mmol/L (137-145)
[2023-11-09 15:45] LABS: Vitamin B12 696 pg/mL (239-931)
== END ==
PROVIDERS: PCP Family Medicine; Referring Provider Family Medicine; Visit Provider Family Medicine
DX: R41.89 Other symptoms and signs involving cognitive functions and awareness (principal); R73.01 Impaired fasting glucose; E53.8 Deficiency of other specified B group vitamins; L57.0 Actinic keratosis
CPT/HCPCS: 36415; 80048; 82607; 83036

== ENCOUNTER → 2024-05-07 12:26 | Outpatient (CLI) | payer MEDICARE, OTHER, SELFPAY ==
[2024-05-07 13:18] LABS: Add Manual Diff / Slide Review NO; Basophils Absolute Auto 100 /uL (0-100); Basophils Percent Auto 1.2 % (0-2); Eosinophils Absolute Auto 200 /uL (0-450); Eosinophils Percent Auto 3.4 % (2-4); Hematocrit 39.7 % (41-53); Hemoglobin 13.6 g/dL (13.5-17.5); Lymphocytes Absolute Auto 1200 /uL (1100-4500); Lymphocytes Percent Auto 25.8 % (25-40); Mean Corpuscular HGB Conc 34.3 % (30-36); Mean Corpuscular Hemoglobin 32.3 PG (26-34); Mean Corpuscular Volume 94.3 fL (80-100); Monocytes Absolute Auto 500 /uL (0-900); Monocytes Percent Auto 9.5 % (3-14); Neutrophils Absolute Auto 2900 /uL (1500-7000); Neutrophils Percent Auto 60.1 % (50-75); Platelet Count 145 X10^3/uL (150-400); Red Blood Cell Count 4.21 X10^6/uL (4.5-5.9); Red Cell Distribution Width 13.6 % (11.6-14.8); White Blood Cell Count 4.8 X10^3/uL (4.5-11.0)
[2024-05-07 13:25] LABS: Hemoglobin A1C% w Est Avg Glu 5.5 % (4.0-6.0)
[2024-05-07 13:47] LABS: Alanine Aminotransferase 28 IU/L (<50); Albumin 4.1 g/dL (3.5-5.0); Albumin Globulin Ratio 2.3 (1.0-2.8); Alkaline Phosphatase 68 U/L (38-126); Aspartate Aminotransferase 23 IU/L (17-59); BUN Creatinine Ratio 30.8 (6-22); Bilirubin Total 1.2 mg/dL (0.2-1.3); Blood Urea Nitrogen 20 mg/dL (9-20); Calcium 9.2 mg/dL (8.4-10.2); Carbon Dioxide 26 mmol/L (22-32); Chloride 107 mmol/L (98-107); Cholesterol 115 mg/dL (140-199); Estimated Glomerular Filt Rate > 60 mL/min (>60); Globulin 1.8 g/dL (1.7-4.1); Glucose 102 mg/dL (80-110); HDL Cholesterol 55 mg/dL (40-60); HEMOLYSIS < 15 (0-50); LDL Cholesterol Calculated 45 mg/dL (<100); Potassium 3.5 mmol/L (3.4-5.1); Sodium 139 mmol/L (137-145); Total Protein 5.9 g/dL (6.3-8.2); Triglycerides 73 mg/dL (35-150)
[2024-05-07 14:08] LABS: TSH w/ Reflex to FT4 1.08 uIU/mL (0.47-4.68)
[2024-05-07 14:15] LABS: Prostate Specific Antigen Scrn 6.42 ng/mL (0.1-4.0)
== END ==
PROVIDERS: PCP Family Medicine; Referring Provider Family Medicine; Visit Provider Family Medicine
DX: E11.9 Type 2 diabetes mellitus without complications (principal); I10 Essential (primary) hypertension; Z12.5 Encounter for screening for malignant neoplasm of prostate; R97.20 Elevated prostate specific antigen [PSA]; N13.8 Other obstructive and reflux uropathy; N40.1 Benign prostatic hyperplasia with lower urinary tract symptoms; E78.49 Other hyperlipidemia
CPT/HCPCS: 80053; 80061; 83036; 84443; 85025; G0103

== ENCOUNTER 2024-09-22 23:18 | Observation (INO) | payer MEDICARE, OTHER, SELFPAY ==
[2024-09-22 23:32] VITALS: BP 146/66; PULSE 100; RESP 18; TEMP 36.9; O2SAT 98; BMI 25.0
--- NOTE | 2024-09-22 23:46 | ED.GENADULT ---
HPI - General Adult General Chief complaint: Altered Mental Status Stated complaint: confused came out of the blue Time Seen by Provider: 09/22/24 23:24 Source: family Mode of arrival: Ambulatory Limitations: altered mental status History of Present Illness HPI narrative: Patient was a 79-year-old male. Is here with his for evaluation of a rather acute onset of altered mental status. Patient's states he does have history of ?cognitive decline? but is normally alert and oriented, independent, active. He was not on anticoagulation. Patient's states that they were sitting on the couch last evening watching some football. She was noticed that over the past several days he was had upper respiratory tract infection like symptoms. She offered the patient some Benadryl. He took 2 tablets of Benadryl. Unsure exactly when the symptoms started but it was sometime after he took the Benadryl where she stated that he was confused. Was talking nonsense. Did not seem to have any balance issues. There was no drooping of the face. No vomiting. The patient was unable to provide any HPI as he was clearly confused about what is going on. He does report that he was not in any discomfort. Denies chest pain, shortness of breath, abdominal pain. Related Data Home Medications Medication Instructions Recorded Confirmed cholecalciferol (vitamin D3) 50 2,000 unit PO DAILY 11/09/23 05/13/24 mcg (2,000 unit) capsule (Vitamin D3) mecobalamin (vitamin B12) 1,000 1,000 mcg PO DAILY 11/09/23 05/13/24 mcg disintegrating tablet,sublingual Previous Rx's Medication Instructions Recorded alfuzosin 10 mg tablet,extended 10 mg PO DAILY #30 tabs 12/12/21 release 24 hr colchicine 0.6 mg capsule 0.6 mg PO DAILY Gout prophylaxis 06/27/23 #90 caps donepezil 10 mg tablet (Aricept) 10 mg PO BEDTIME #90 tabs 11/09/23 lisinopril 20 0.5 tab PO DAILY #90 tabs 11/09/23 mg-hydrochlorothiazide 25 mg tablet metformin 500 mg tablet 500 mg PO BID blood sugars #180 01/07/24 tabs metoprolol succinate 25 mg 25 mg PO DAILY #90 tabs 03/03/24 tablet,extended release 24 hr allopurinol 300 mg tablet 300 mg PO DAILY #100 tabs 05/13/24 atorvastatin 40 mg tablet 40 mg PO DAILY #100 tabs 05/13/24 Allergies Allergy/AdvReac Type Severity Reaction Status Date / Time No Known Drug Allergies Allergy Verified 05/13/24 11:32 Review of Systems Review of Systems ROS Unobtainable: Unobtainable due to mental condition Patient History Medical History B12 deficiency Encounter for initial annual wellness visit (AWV) in Medicare patient Cognitive decline Hearing loss Dupuytren contracture (~2014) Shoulder pain (~2019) Fractures (~1969) Chicken pox (~1954) Tinnitus (~1999) Cataracts, bilateral (~2020) Benign essential HTN (~2014) Hyperlipidemia IFG (impaired fasting glucose) BPH w urinary obs/LUTS Elevated PSA (~2021) Male circumcision Gout (~1989) Arthritis Surgical History (Updated 04/22/23 @ 21:38 by Mel Oviedo) Anesthesia History of cataract removal with insertion of prosthetic lens (~06/2022) History of tonsillectomy (~1954) H/O repair of rotator cuff (~09/2021) Family History (Updated 04/22/23 @ 21:38 by Mel Oviedo) Father Cancer Social History household members: spouse Smoking Status: Former smoker Tobacco: How many years used: 30 alcohol intake: current substance use type: does not use Smoking Status: Former smoker alcohol intake frequency: 0-2 drinks per day Exam Initial Vital Signs Initial Vital Signs: Vital Signs Temperature 98.5 F 09/22/24 23:32 Pulse Rate 100 H 09/22/24 23:32 Respiratory Rate 18 09/22/24 23:32 Blood Pressure 146/66 H 09/22/24 23:32 Pulse Oximetry 98 09/22/24 23:32 Oxygen Delivery Method Room Air 09/22/24 23:32 Const General: cooperative, comfortable and No ill appearing HENMA Head: normal to inspection and normocephalic Face and sinus: normal facial exam Mouth: oral mucosae normal and lip normal Eyes General: Yes appearance normal, both eyes and all related structures Pupils: PERRL Resp Effort & Inspection: normal respiratory effort Auscultation: clear to auscultation bilaterally Cardio Rate: regular rate Rhythm: regular rhythm GI Inspection: normal to inspection and non-distended Skin General: no rashes or lesions noted Neuro General: patient alert, patient awake, gait normal and moves all extremities Cognition: abnormal cognition (Confused) Speech: speech normal, no expressive aphasia and no receptive aphasia Extrem General: normal to inspection Scores GCS Liza coma scale eye opening: Spontaneous Liza coma scale verbal response: Confused Liza coma scale motor response: Obey commands [place] coma scale total score: 14 Course Orders Ordered: ED Orders 09/22/24 23:47 CT head/brain wo con Stat Complete Blood Count AUTO DIFF Stat Comprehensive Metabolic Panel Stat Ethanol (ETOH) Stat Lipase Stat 09/23/24 00:05 Covid-19 + FLU A/B + RSV - PCR Stat 09/23/24 01:17 Urinalysis and Microscopic Stat Urine Drug Screen, Rapid Stat Vital Signs Vital signs: Vital Signs - 8 hr 09/22/24 23:32 09/23/24 00:26 09/23/24 00:30 Temperature 98.5 F Pulse Rate 100 H 90 Respiratory Rate 18 Blood Pressure 146/66 H 151/70 H Pulse Oximetry 98 99 Oxygen Delivery Method Room Air 09/23/24 00:30 09/23/24 01:00 09/23/24 01:00 Temperature Pulse Rate 89 89 Respiratory Rate Blood Pressure 127/59 L Pulse Oximetry 98 98 Oxygen Delivery Method Room Air Room Air 09/23/24 01:30 09/23/24 01:30 09/23/24 02:00 Temperature Pulse Rate 85 Respiratory Rate 17 Blood Pressure 148/69 H 152/69 H Pulse Oximetry 97 Oxygen Delivery Method Room Air 09/23/24 02:00 09/23/24 02:30 09/23/24 02:30 Temperature Pulse Rate 83 84 Respiratory Rate Blood Pressure 141/65 H Pulse Oximetry 98 97 Oxygen Delivery Method Room Air 09/23/24 03:00 09/23/24 03:00 Temperature Pulse Rate 82 Respiratory Rate 18 Blood Pressure 134/66 Pulse Oximetry 96 Oxygen Delivery Method Room Air Medical Decision Making Medical Records Medical records reviewed: Yes I reviewed the patient's medical records. Lab Data Lab results reviewed: Yes I reviewed the patient's lab results. 09/23/24 00:10 09/23/24 00:10 Labs: Lab Results 09/23/24 09/23/24 09/23/24 Range/Units 00:05 00:10 01:17 WBC 6.5 (4.5-11.0) X10^3/uL RBC 4.55 (4.5-5.9) X10^6/uL Hgb 14.6 (13.5-17.5) g/dL Hct 42.8 (41-53) % MCV 94.1 (80-100) fL MCH 32.1 (26-34) PG MCHC 34.1 (30-36) % RDW 13.2 (11.6-14.8) % Plt Count 175 (150-400) X10^3/uL Neut % (Auto) 78.5 H (50-75) % Lymph % (Auto) 10.1 L (25-40) % [place] % (Auto) 10.3 (3-14) % Eos % (Auto) 0.6 L (2-4) % Baso % (Auto) 0.5 (0-2) % Neut # (Auto) 5100 (4274-3616) /uL Lymph # (Auto) 700 L (3741-4076) /uL [place] # (Auto) 700 (0-900) /uL Eos # (Auto) 0 (0-450) /uL Baso # (Auto) 0 (0-100) /uL Sodium 140 (137-145) mmol/L Potassium 3.8 (3.4-5.1) mmol/L Chloride 108 H (98-107) mmol/L Carbon Dioxide 26 (22-32) mmol/L BUN 18 (9-20) mg/dL Creatinine 0.77 (0.66-1.25) mg/dL Estimated GFR > 60 (>60) mL/min BUN/Creatinine Ratio 23.4 H (6-22) Glucose 120 H (80-110) mg/dL Calcium 9.4 (8.4-10.2) mg/dL Total Bilirubin 0.7 (0.2-1.3) mg/dL AST 25 (17-59) IU/L ALT 25 (<50) IU/L Alkaline Phosphatase 82 (38-126) U/L Total Protein 6.7 (6.3-8.2) g/dL Albumin 4.4 (3.5-5.0) g/dL Globulin 2.3 (1.7-4.1) g/dL Albumin/Globulin Ratio 1.9 (1.0-2.8) Lipase 314 H (23-300) U/L Urine Color Yellow Urine Appearance Clear Urine pH 5.5 (4.5-8.0) Ur Specific [place] 1.020 (1.000-1.035) Urine Protein Negative (Negative) Urine Glucose (UA) Negative (Negative) g/dL Urine Ketones Trace H (NEGATIVE) Urine Occult Blood Trace-intact (Negative) Urine Nitrate Negative (Negative) Urine Bilirubin Negative (NEGATIVE) Urine Urobilinogen 0.2 (0.2) E.U./dL Ur Leukocyte Esterase Negative (NEGATIVE) Urine RBC 0-1/hpf (0-5/HPF) Urine WBC None seen (0-5/HPF) Ur Squamous Epith Cells 0-1 /hpf (0-5/HPF) Urine Bacteria None seen (None) Ur Culture Indicated? Cult not indicated Vol Urine Centrifuged 10ml (spun) U Opiates 300ng/mL cut Negative (Negative) Ur Oxycodone Screen Negative (Negative) Urine Methadone Screen Negative (Negative) Ur Barbiturates Screen Negative (Negative) U Tricyclic Antidepress Negative (Negative) Ur Phencyclidine Scrn Negative (Negative) Ur Amphetamines Screen Negative (Negative) U Methamphetamines Scrn Negative (Negative) Ur MDMA Scrn (Ecstasy) Negative (Negative) U Benzodiazepines Scrn Negative (Negative) Urine Cocaine Screen Negative (Negative) U Marijuana (THC) Screen Negative (Negative) Urine Specific [place] (Normal) Ethyl Alcohol < 10 ( - 10) mg/dL Ur Creatinine (Normal) SARS-CoV-2 (PCR) Negative (Negative) Influenza A (RT-PCR) Flu a negative (NEGATIVE) Influenza B (RT-PCR) Flu b negative (NEGATIVE) RSV (PCR) Negative (Negative) 09/23/24 Range/Units 01:17 WBC (4.5-11.0) X10^3/uL RBC (4.5-5.9) X10^6/uL Hgb (13.5-17.5) g/dL Hct (41-53) % MCV (80-100) fL MCH (26-34) PG MCHC (30-36) % RDW (11.6-14.8) % Plt Count (150-400) X10^3/uL Neut % (Auto) (50-75) % Lymph % (Auto) (25-40) % [place] % (Auto) (3-14) % Eos % (Auto) (2-4) % Baso % (Auto) (0-2) % Neut # (Auto) (6892-2115) /uL Lymph # (Auto) (8123-0317) /uL [place] # (Auto) (0-900) /uL Eos # (Auto) (0-450) /uL Baso # (Auto) (0-100) /uL Sodium (137-145) mmol/L Potassium (3.4-5.1) mmol/L Chloride (98-107) mmol/L Carbon Dioxide (22-32) mmol/L BUN (9-20) mg/dL Creatinine (0.66-1.25) mg/dL Estimated GFR (>60) mL/min BUN/Creatinine Ratio (6-22) Glucose (80-110) mg/dL Calcium (8.4-10.2) mg/dL Total Bilirubin (0.2-1.3) mg/dL AST (17-59) IU/L ALT (<50) IU/L Alkaline Phosphatase (38-126) U/L Total Protein (6.3-8.2) g/dL Albumin (3.5-5.0) g/dL Globulin (1.7-4.1) g/dL Albumin/Globulin Ratio (1.0-2.8) Lipase (23-300) U/L Urine Color Urine Appearance Urine pH Normal (4.5-8.0) Ur Specific [place] (1.000-1.035) Urine Protein (Negative) Urine Glucose (UA) (Negative) g/dL Urine Ketones (NEGATIVE) Urine Occult Blood (Negative) Urine Nitrate (Negative) Urine Bilirubin (NEGATIVE) Urine Urobilinogen (0.2) E.U./dL Ur Leukocyte Esterase (NEGATIVE) Urine RBC (0-5/HPF) Urine WBC (0-5/HPF) Ur Squamous Epith Cells (0-5/HPF) Urine Bacteria (None) Ur Culture Indicated? Vol Urine Centrifuged U Opiates 300ng/mL cut (Negative) Ur Oxycodone Screen (Negative) Urine Methadone Screen (Negative) Ur Barbiturates Screen (Negative) U Tricyclic Antidepress (Negative) Ur Phencyclidine Scrn (Negative) Ur Amphetamines Screen (Negative) U Methamphetamines Scrn (Negative) Ur MDMA Scrn (Ecstasy) (Negative) U Benzodiazepines Scrn (Negative) Urine Cocaine Screen (Negative) U Marijuana (THC) Screen (Negative) Urine Specific [place] Normal (Normal) Ethyl Alcohol ( - 10) mg/dL Ur Creatinine Normal (Normal) SARS-CoV-2 (PCR) (Negative) Influenza A (RT-PCR) (NEGATIVE) Influenza B (RT-PCR) (NEGATIVE) RSV (PCR) (Negative) Imaging Data CT scan - head: Radiologist's Impression: PROCEDURE: CT HEAD/BRAIN WO CON INDICATIONS: Altered mental status TECHNIQUE: Noncontrast 4.5 mm thick angled axial sections acquired from the foramen magnum to the vertex, with coronal and sagittal reformats. For radiation dose reduction, the following was used: automated exposure control, adjustment of mA and/or kV according to patient size. COMPARISON: [facility], CT, CT HEAD/BRAIN WO CON, 11/14/2021, 13:41. FINDINGS: Image quality: Diagnostic. CSF spaces: Basal cisterns are patent. No extra-axial fluid collections. The ventricles are symmetric in size and shape. Brain: No intracranial bleeds or masses. There is cerebral volume loss for age, with resultant ventricular and sulcal prominence. There are periventricular and deep white matter chronic small vessel ischemic changes. There is intracranial internal carotid artery atherosclerosis. Skull and face: Calvarium and visualized facial bones appear intact, without suspicious lesions. Sinuses: Visualized sinuses and mastoids are clear. IMPRESSION: No acute intracranial pathology. MDM Narrative Medical decision making narrative: Patient is very confused. He knows that he was at [facility] but does not know what year it is. He knows his name. He does not know why he was here. He was moving all 4 extremities equally. He was no facial droop. He does follow commands. When he was asked questions he does speak in words that are easily identifiable but have nothing to do with the question that is asked. He was head CT is unremarkable. His labs are unremarkable. I do not have a concern for an infection. I have low suspicion for CVA. Unsure as to whether or not this is the Benadryl that is causing the symptoms. According to his he was never acted like this in the past after Benadryl. I did discuss the case with Dr. Martinez hospitalist on-call who will admit for further evaluation and treatment. Discussed the need for admission with the patient and his . They expressed understanding agreement as well. Discharge Plan Departure Patient Disposition: Admitted as Observation Clinical Impression: Altered mental status Admit Date/Time: 09/23/24 03:27 Admit Provider: Sudheer Dumont
[2024-09-23] VITALS (11 sets, daily range): BP systolic 127–152; BP diastolic 59–80; PULSE 79–90; RESP 17–19; TEMP 37.6; O2SAT 96–99; BMI 25.0
[2024-09-23 00:21] LABS: Add Manual Diff / Slide Review NO; Basophils Absolute Auto 0 /uL (0-100); Basophils Percent Auto 0.5 % (0-2); Eosinophils Absolute Auto 0 /uL (0-450); Eosinophils Percent Auto 0.6 % (2-4); Hematocrit 42.8 % (41-53); Hemoglobin 14.6 g/dL (13.5-17.5); Lymphocytes Absolute Auto 700 /uL (1100-4500); Lymphocytes Percent Auto 10.1 % (25-40); Mean Corpuscular HGB Conc 34.1 % (30-36); Mean Corpuscular Hemoglobin 32.1 PG (26-34); Mean Corpuscular Volume 94.1 fL (80-100); Monocytes Absolute Auto 700 /uL (0-900); Monocytes Percent Auto 10.3 % (3-14); Neutrophils Absolute Auto 5100 /uL (1500-7000); Neutrophils Percent Auto 78.5 % (50-75); Platelet Count 175 X10^3/uL (150-400); Red Blood Cell Count 4.55 X10^6/uL (4.5-5.9); Red Cell Distribution Width 13.2 % (11.6-14.8); White Blood Cell Count 6.5 X10^3/uL (4.5-11.0)
[2024-09-23 00:49] LABS: Alanine Aminotransferase 25 IU/L (<50); Albumin 4.4 g/dL (3.5-5.0); Albumin Globulin Ratio 1.9 (1.0-2.8); Alkaline Phosphatase 82 U/L (38-126); Aspartate Aminotransferase 25 IU/L (17-59); BUN Creatinine Ratio 23.4 (6-22); Bilirubin Total 0.7 mg/dL (0.2-1.3); Blood Urea Nitrogen 18 mg/dL (9-20); Calcium 9.4 mg/dL (8.4-10.2); Carbon Dioxide 26 mmol/L (22-32); Chloride 108 mmol/L (98-107); Estimated Glomerular Filt Rate > 60 mL/min (>60); Ethanol (ETOH) < 10 mg/dL; Globulin 2.3 g/dL (1.7-4.1); Glucose 120 mg/dL (80-110); HEMOLYSIS 24 (0-50); Lipase 314 U/L (23-300); Potassium 3.8 mmol/L (3.4-5.1); Sodium 140 mmol/L (137-145); Total Protein 6.7 g/dL (6.3-8.2)
[2024-09-23 00:55] LABS: Influenza A - CEPHEID Flu A NEGATIVE (NEGATIVE); Influenza B - CEPHEID Flu B NEGATIVE (NEGATIVE); Respiratory Syncytial Virus Negative (Negative)
[2024-09-23 00:58] LABS: COVID-19 CEPHEID 4-PLEX PCR Negative (Negative)
[2024-09-23 01:28] LABS: UR Morphine/Opiate cutoff 300 Negative (Negative); Ur Creatinine Normal (Normal); Ur Specific Gravity Normal (Normal); Urine Amphetamines Negative (Negative); Urine Barbiturates Negative (Negative); Urine Benzodiazepines Negative (Negative); Urine Cocaine Negative (Negative); Urine MDMA Negative (Negative); Urine Methadone Negative (Negative); Urine Methamphetamines Negative (Negative); Urine Oxycodone Negative (Negative); Urine Phencyclidine Negative (Negative); Urine Tetrahydrocannabinol Negative (Negative); Urine Tricyclic Antidepressant Negative (Negative); Urine pH Normal (Normal)
[2024-09-23 01:41] LABS: Appearance Urine UA CLEAR; Bilirubin Urine UA NEGATIVE (NEGATIVE); Color Urine UA YELLOW; Glucose Urine UA NEGATIVE (Negative); Ketones Urine UA TRACE (NEGATIVE); Leukocyte Esterase Urine UA NEGATIVE (NEGATIVE); Nitrite Urine UA NEGATIVE (Negative); Occult Blood Urine UA TRACE-INTACT (Negative); Protein Urine UA NEGATIVE (Negative); Urobilinogen Urine UA 0.2 E.U./dL (0.2); pH Urine UA 5.5 (4.5-8.0)
[2024-09-23 01:50] LABS: Bacteria Urine None Seen; Culture Indicated Urine Cult Not Indicated; RBC Urine 0-1/HPF (0-5/HPF); Squamous Epithelial Cell Urine 0-1 /HPF (0-5/HPF); Urine Volume 10mL (spun); WBC Urine None Seen (0-5/HPF)
--- NOTE | 2024-09-23 04:39 | P.HP_ITS ---
History of Present Illness History of Present Illness Chief complaint: confused came out of the blue Narrative: 79 y/o with PMH of mild dementia, on Aricept, DM, OA, gout, alcohol use, former smoker, HTN, BPH, HLD, had some respiratory congestion earlier today and gave him 50 mg of Benadryl upon which he became confused and was brought to ER. ED workup non-revealing. After few hours in the ED he continues to be disoriented, as per the patient. Placed in observation. [facility] Medical History B12 deficiency Encounter for initial annual wellness visit (AWV) in Medicare patient Cognitive decline Hearing loss Dupuytren contracture (~2014) Shoulder pain (~2019) Fractures (~1969) Chicken pox (~1954) Tinnitus (~1999) Cataracts, bilateral (~2020) Benign essential HTN (~2014) Hyperlipidemia IFG (impaired fasting glucose) BPH w urinary obs/LUTS Elevated PSA (~2021) Male circumcision Gout (~1989) Arthritis Surgical History Anesthesia History of cataract removal with insertion of prosthetic lens (~06/2022) History of tonsillectomy (~1954) H/O repair of rotator cuff (~09/2021) Family History Father Cancer Social History household members: spouse Smoking Status: Former smoker Tobacco: How many years used: 30 alcohol intake: current substance use type: does not use Meds Home Medications and Allergies Home Medications Medication Instructions Recorded Confirmed Type colchicine 0.6 mg capsule 0.6 mg PO DAILY Gout prophylaxis 06/27/23 05/13/24 Rx #90 caps cholecalciferol (vitamin D3) 50 2,000 unit PO DAILY 11/09/23 09/23/24 History mcg (2,000 unit) capsule (Vitamin D3) lisinopril 20 0.5 tab PO DAILY #90 tabs 11/09/23 09/23/24 Rx mg-hydrochlorothiazide 25 mg tablet mecobalamin (vitamin B12) 1,000 1,000 mcg PO DAILY 11/09/23 09/23/24 History mcg disintegrating tablet,sublingual metformin 500 mg tablet 500 mg PO BID blood sugars #180 01/07/24 09/23/24 Rx tabs metoprolol succinate 25 mg 25 mg PO DAILY #90 tabs 03/03/24 09/23/24 Rx tablet,extended release 24 hr allopurinol 300 mg tablet 300 mg PO DAILY #100 tabs 05/13/24 09/23/24 Rx atorvastatin 40 mg tablet 40 mg PO DAILY #100 tabs 05/13/24 09/23/24 Rx alfuzosin 10 mg tablet,extended 10 mg PO DAILY 09/23/24 09/23/24 History release 24 hr donepezil 10 mg tablet 10 mg PO DAILY 09/23/24 09/23/24 History Allergies Allergy/AdvReac Type Severity Reaction Status Date / Time No Known Drug Allergies Allergy Verified 05/13/24 11:32 Review of Systems Review of Systems Narrative: Limited historian - he does not remember what happened, what was he given at home He had similar episodes of disorientation and confusion on the top of gradual memory loss since a year ago, not necessarily related to medications side effects Exam Vital Signs (past 8 hours): - 09/22/24 23:32 09/23/24 00:26 09/23/24 00:30 Temperature 98.5 F Pulse Rate 100 H 90 Respiratory Rate 18 Blood Pressure 146/66 H 151/70 H Pulse Oximetry 98 99 Oxygen Delivery Method Room Air 09/23/24 00:30 09/23/24 01:00 09/23/24 01:00 Temperature Pulse Rate 89 89 Respiratory Rate Blood Pressure 127/59 L Pulse Oximetry 98 98 Oxygen Delivery Method Room Air Room Air 09/23/24 01:30 09/23/24 01:30 09/23/24 02:00 Temperature Pulse Rate 85 Respiratory Rate 17 Blood Pressure 148/69 H 152/69 H Pulse Oximetry 97 Oxygen Delivery Method Room Air 09/23/24 02:00 09/23/24 02:30 09/23/24 02:30 Temperature Pulse Rate 83 84 Respiratory Rate Blood Pressure 141/65 H Pulse Oximetry 98 97 Oxygen Delivery Method Room Air 09/23/24 03:00 09/23/24 03:00 09/23/24 03:30 Temperature Pulse Rate 82 Respiratory Rate 18 Blood Pressure 134/66 146/71 H Pulse Oximetry 96 Oxygen Delivery Method Room Air 09/23/24 03:30 Temperature Pulse Rate 82 Respiratory Rate 17 Blood Pressure Pulse Oximetry 97 Oxygen Delivery Method Room Air Oxygen Delivery Method Room Air Const Other: in no distress HENMT Other: normocephalic Resp Other: normal respiratory effort Cardio Other: RRR Skin Other: w/o rashes Neuro Other: w/o focal deficits memory loss Psych Other: appropriate mood and affect Objective Labs 09/23/24 00:10 09/23/24 00:10 Labs: Laboratory Results - last 24 hr 09/23/24 09/23/24 09/23/24 00:05 00:10 01:17 WBC 6.5 RBC 4.55 Hgb 14.6 Hct 42.8 MCV 94.1 MCH 32.1 MCHC 34.1 RDW 13.2 Plt Count 175 Neut % (Auto) 78.5 H Lymph % (Auto) 10.1 L [place] % (Auto) 10.3 Eos % (Auto) 0.6 L Baso % (Auto) 0.5 Neut # (Auto) 5100 Lymph # (Auto) 700 L [place] # (Auto) 700 Eos # (Auto) 0 Baso # (Auto) 0 Sodium 140 Potassium 3.8 Chloride 108 H Carbon Dioxide 26 BUN 18 Creatinine 0.77 Estimated GFR > 60 BUN/Creatinine Ratio 23.4 H Glucose 120 H Calcium 9.4 Total Bilirubin 0.7 AST 25 ALT 25 Alkaline Phosphatase 82 Total Protein 6.7 Albumin 4.4 Globulin 2.3 Albumin/Globulin Ratio 1.9 Lipase 314 H Urine Color Yellow Urine Appearance Clear Urine pH 5.5 Ur Specific [place] 1.020 Urine Protein Negative Urine Glucose (UA) Negative Urine Ketones Trace H Urine Occult Blood Trace-intact Urine Nitrate Negative Urine Bilirubin Negative Urine Urobilinogen 0.2 Ur Leukocyte Esterase Negative Urine RBC 0-1/hpf Urine WBC None seen Ur Squamous Epith Cells 0-1 /hpf Urine Bacteria None seen Ur Culture Indicated? Cult not indicated Vol Urine Centrifuged 10ml (spun) U Opiates 300ng/mL cut Negative Ur Oxycodone Screen Negative Urine Methadone Screen Negative Ur Barbiturates Screen Negative U Tricyclic Antidepress Negative Ur Phencyclidine Scrn Negative Ur Amphetamines Screen Negative U Methamphetamines Scrn Negative Ur MDMA Scrn (Ecstasy) Negative U Benzodiazepines Scrn Negative Urine Cocaine Screen Negative U Marijuana (THC) Screen Negative Urine Specific [place] Ethyl Alcohol < 10 Ur Creatinine SARS-CoV-2 (PCR) Negative Influenza A (RT-PCR) Flu a negative Influenza B (RT-PCR) Flu b negative RSV (PCR) Negative 09/23/24 01:17 WBC RBC Hgb Hct MCV MCH MCHC RDW Plt Count Neut % (Auto) Lymph % (Auto) [place] % (Auto) Eos % (Auto) Baso % (Auto) Neut # (Auto) Lymph # (Auto) [place] # (Auto) Eos # (Auto) Baso # (Auto) Sodium Potassium Chloride Carbon Dioxide BUN Creatinine Estimated GFR BUN/Creatinine Ratio Glucose Calcium Total Bilirubin AST ALT Alkaline Phosphatase Total Protein Albumin Globulin Albumin/Globulin Ratio Lipase Urine Color Urine Appearance Urine pH Normal Ur Specific [place] Urine Protein Urine Glucose (UA) Urine Ketones Urine Occult Blood Urine Nitrate Urine Bilirubin Urine Urobilinogen Ur Leukocyte Esterase Urine RBC Urine WBC Ur Squamous Epith Cells Urine Bacteria Ur Culture Indicated? Vol Urine Centrifuged U Opiates 300ng/mL cut Ur Oxycodone Screen Urine Methadone Screen Ur Barbiturates Screen U Tricyclic Antidepress Ur Phencyclidine Scrn Ur Amphetamines Screen U Methamphetamines Scrn Ur MDMA Scrn (Ecstasy) U Benzodiazepines Scrn Urine Cocaine Screen U Marijuana (THC) Screen Urine Specific [place] Normal Ethyl Alcohol Ur Creatinine Normal SARS-CoV-2 (PCR) Influenza A (RT-PCR) Influenza B (RT-PCR) RSV (PCR) Assessment & Plan Assessment and plan (1) Altered mental status: Status: Acute (2) Dementia: Status: Acute (3) BPH w urinary obs/LUTS: Status: Acute (4) Hyperlipidemia: Qualifiers: Hyperlipidemia type: other hyperlipidemia Qualified Code(s): E78.49 - Other hyperlipidemia Status: Acute (5) Benign essential HTN: Status: Acute (6) Diabetes: Status: Acute Assessment & Plan narrative: AMS - likely adverse effects of Benadryl with underlying dementia - observation over night Dementia - Aricept - supportive care BPH - Flomax - w/o evidence of UTI HTN - metoprolol, Lisinopril, HCTZ Gout - allopurinol HLD - statin DVT prophylaxis - SCDs Time-Based Coding :: [TOTAL MINUTES] spent with patient and on the chart (including review of chart, obtaining history, exam, reviewing outside data, placing orders, documenting exam and treatment plan, and counseling patient) on [DATE].
--- NOTE | 2024-09-23 07:06 | P.DS_ITS ---
History of Present Illness History of Present Illness Date Patient Seen: 09/23/24 Chief complaint: confused came out of the blue Narrative: 79 y/o with PMH of mild dementia, on Aricept, DM, OA, gout, alcohol use, former smoker, HTN, BPH, HLD, had some respiratory congestion earlier today and gave him 50 mg of Benadryl upon which he became confused and was brought to ER. ED workup non-revealing. After few hours in the ED he continues to be disoriented, as per the patient. Placed in observation. Discharge Providers Provider Date of admission: 09/23/24 03:27 Discharge Date: 09/23/24 Primary care physician: Brandi Zhu DO Discharge provider: Yeni Espinosa MD Summary Hospital Course Discharge Diagnosis: AMS - likely adverse effects of Benadryl with underlying dementia - resolved Mild Cognitive Impairment - Aricept Bronchitis -Azithromycin BPH - Flomax - w/o evidence of UTI HTN - metoprolol, Lisinopril, HCTZ Gout - allopurinol HLD - statin Hospital Course: He has been coughing for 3 days so his suggested that he take Benadryl. Shortly after taking the Benadryl he became confused and unable to express himself. He was evaluated in the ED with negative testing for COVID and influenza. The CBC and CMP were normal. The lipase was mildly elevated at 314. He had no abdominal symptoms. His UA was normal. His urine drug screen was normal and his head CT was negative. By the time he was in the ED was fully oriented. He was observed overnight and continues to be fully recovered. A chest x-ray this morning appears to show possible bronchitis versus early pneumonia in the right lower lobe. He will be discharged home on Zithromax. He is cautioned not to take Benadryl due to his age and risk of complications such as the 1 he just had. Status at Discharge Cognitive/behavioral status at discharge: at baseline, oriented Functional status at discharge: independent ambulation Overall status at discharge: patient is back to baseline Exam Vital Signs (past 8 hours): - 09/22/24 23:32 09/23/24 00:26 09/23/24 00:30 Temperature 98.5 F Pulse Rate 100 H 90 Respiratory Rate 18 Blood Pressure 146/66 H 151/70 H Pulse Oximetry 98 99 Oxygen Delivery Method Room Air Oxygen Flow Rate 09/23/24 00:30 09/23/24 01:00 09/23/24 01:00 Temperature Pulse Rate 89 89 Respiratory Rate Blood Pressure 127/59 L Pulse Oximetry 98 98 Oxygen Delivery Method Room Air Room Air Oxygen Flow Rate 09/23/24 01:30 09/23/24 01:30 09/23/24 02:00 Temperature Pulse Rate 85 Respiratory Rate 17 Blood Pressure 148/69 H 152/69 H Pulse Oximetry 97 Oxygen Delivery Method Room Air Oxygen Flow Rate 09/23/24 02:00 09/23/24 02:30 09/23/24 02:30 Temperature Pulse Rate 83 84 Respiratory Rate Blood Pressure 141/65 H Pulse Oximetry 98 97 Oxygen Delivery Method Room Air Oxygen Flow Rate 09/23/24 03:00 09/23/24 03:00 09/23/24 03:30 Temperature Pulse Rate 82 Respiratory Rate 18 Blood Pressure 134/66 146/71 H Pulse Oximetry 96 Oxygen Delivery Method Room Air Oxygen Flow Rate 09/23/24 03:30 09/23/24 04:30 09/23/24 04:54 Temperature 99.7 F H Pulse Rate 82 79 Respiratory Rate 17 19 Blood Pressure 146/80 H Pulse Oximetry 97 96 Oxygen Delivery Method Room Air Room Air Oxygen Flow Rate 0 Oxygen Delivery Method Room Air Oxygen Flow Rate 0 Narrative Exam Narrative: Alert and oriented x3. No signs of dementia or delirium. Heart is regular rate and rhythm without murmur Lungs are clear to auscultation bilaterally Extremities have no ankle edema Cranial nerves 2-12 test intact Motor function is 5/5 throughout There is no tremor. Objective Labs 09/23/24 00:10 09/23/24 00:10 Labs: Laboratory Results - last 24 hr 09/23/24 09/23/24 09/23/24 00:05 00:10 01:17 WBC 6.5 RBC 4.55 Hgb 14.6 Hct 42.8 MCV 94.1 MCH 32.1 MCHC 34.1 RDW 13.2 Plt Count 175 Neut % (Auto) 78.5 H Lymph % (Auto) 10.1 L [place] % (Auto) 10.3 Eos % (Auto) 0.6 L Baso % (Auto) 0.5 Neut # (Auto) 5100 Lymph # (Auto) 700 L [place] # (Auto) 700 Eos # (Auto) 0 Baso # (Auto) 0 Sodium 140 Potassium 3.8 Chloride 108 H Carbon Dioxide 26 BUN 18 Creatinine 0.77 Estimated GFR > 60 BUN/Creatinine Ratio 23.4 H Glucose 120 H Calcium 9.4 Total Bilirubin 0.7 AST 25 ALT 25 Alkaline Phosphatase 82 Total Protein 6.7 Albumin 4.4 Globulin 2.3 Albumin/Globulin Ratio 1.9 Lipase 314 H Urine Color Yellow Urine Appearance Clear Urine pH 5.5 Ur Specific [place] 1.020 Urine Protein Negative Urine Glucose (UA) Negative Urine Ketones Trace H Urine Occult Blood Trace-intact Urine Nitrate Negative Urine Bilirubin Negative Urine Urobilinogen 0.2 Ur Leukocyte Esterase Negative Urine RBC 0-1/hpf Urine WBC None seen Ur Squamous Epith Cells 0-1 /hpf Urine Bacteria None seen Ur Culture Indicated? Cult not indicated Vol Urine Centrifuged 10ml (spun) U Opiates 300ng/mL cut Negative Ur Oxycodone Screen Negative Urine Methadone Screen Negative Ur Barbiturates Screen Negative U Tricyclic Antidepress Negative Ur Phencyclidine Scrn Negative Ur Amphetamines Screen Negative U Methamphetamines Scrn Negative Ur MDMA Scrn (Ecstasy) Negative U Benzodiazepines Scrn Negative Urine Cocaine Screen Negative U Marijuana (THC) Screen Negative Urine Specific [place] Ethyl Alcohol < 10 Ur Creatinine SARS-CoV-2 (PCR) Negative Influenza A (RT-PCR) Flu a negative Influenza B (RT-PCR) Flu b negative RSV (PCR) Negative 09/23/24 01:17 WBC RBC Hgb Hct MCV MCH MCHC RDW Plt Count Neut % (Auto) Lymph % (Auto) [place] % (Auto) Eos % (Auto) Baso % (Auto) Neut # (Auto) Lymph # (Auto) [place] # (Auto) Eos # (Auto) Baso # (Auto) Sodium Potassium Chloride Carbon Dioxide BUN Creatinine Estimated GFR BUN/Creatinine Ratio Glucose Calcium Total Bilirubin AST ALT Alkaline Phosphatase Total Protein Albumin Globulin Albumin/Globulin Ratio Lipase Urine Color Urine Appearance Urine pH Normal Ur Specific [place] Urine Protein Urine Glucose (UA) Urine Ketones Urine Occult Blood Urine Nitrate Urine Bilirubin Urine Urobilinogen Ur Leukocyte Esterase Urine RBC Urine WBC Ur Squamous Epith Cells Urine Bacteria Ur Culture Indicated? Vol Urine Centrifuged U Opiates 300ng/mL cut Ur Oxycodone Screen Urine Methadone Screen Ur Barbiturates Screen U Tricyclic Antidepress Ur Phencyclidine Scrn Ur Amphetamines Screen U Methamphetamines Scrn Ur MDMA Scrn (Ecstasy) U Benzodiazepines Scrn Urine Cocaine Screen U Marijuana (THC) Screen Urine Specific [place] Normal Ethyl Alcohol Ur Creatinine Normal SARS-CoV-2 (PCR) Influenza A (RT-PCR) Influenza B (RT-PCR) RSV (PCR) PFSH Medical History B12 deficiency Encounter for initial annual wellness visit (AWV) in Medicare patient Cognitive decline Hearing loss Dupuytren contracture (~2014) Shoulder pain (~2019) Fractures (~1969) Chicken pox (~1954) Tinnitus (~1999) Cataracts, bilateral (~2020) Benign essential HTN (~2014) Hyperlipidemia IFG (impaired fasting glucose) BPH w urinary obs/LUTS Elevated PSA (~2021) Male circumcision Gout (~1989) Arthritis Surgical History Anesthesia History of cataract removal with insertion of prosthetic lens (~06/2022) History of tonsillectomy (~1954) H/O repair of rotator cuff (~09/2021) Family History Father Cancer Social History household members: spouse Smoking Status: Former smoker Tobacco: How many years used: 30 alcohol intake: current substance use type: does not use Discharge Plan Discharge Plan Patient Disposition: Home Discharge orders & Medications Prescriptions: New azithromycin 250 mg tablet See Rx Instructions .ROUTE .COMPLEX Qty: 6 0RF Rx Instructions: For 250 mg dose pack: take 500 mg today (day 1), then 250 mg for 4 days (days 2-5) Continued metformin 500 mg tablet 500 mg PO BID Qty: 180 3RF metoprolol succinate 25 mg tablet extended release 24 hr 25 mg PO DAILY Qty: 90 3RF colchicine 0.6 mg capsule 0.6 mg PO DAILY Qty: 90 3RF lisinopril-hydrochlorothiazide 20-25 mg tablet 0.5 tab PO DAILY Qty: 90 3RF mecobalamin (vitamin B12) 1,000 mcg tablet,disintegrating 1,000 mcg PO DAILY cholecalciferol (vitamin D3) [Vitamin D3] 50 mcg (2,000 unit) capsule 2,000 unit PO DAILY allopurinol 300 mg tablet 300 mg PO DAILY Qty: 100 3RF atorvastatin 40 mg tablet 40 mg PO DAILY Qty: 100 3RF donepezil 10 mg tablet 10 mg PO DAILY alfuzosin 10 mg tablet extended release 24 hr 10 mg PO DAILY Follow up/Referrals: Brandi Zhu DO [Primary Care Provider] - Diet/Activity/Treatments Diet: Regular Visit Report/Discharge Packet Instructions: DI for Acute Bronchitis, How to Use Antibiotics Wisely Stand Alone Forms: Patient Portal/API, Stroke Signs & Symptoms Discharge Data Primary Care Provider: Brandi Zhu Attending Provider: Sudheer Dumont Admit Date/Time: 09/23/24 03:27
--- NOTE | 2024-09-23 08:59 | DI.RAD.S_ITS ---
PROCEDURE: XR CHEST 2V INDICATIONS: Cough TECHNIQUE: 2 views of the chest were acquired. COMPARISON: None. FINDINGS: Surgical changes and devices: None. Lungs and pleura: Lungs are clear. No pleural effusions or pneumothorax. Mediastinum: Mediastinal contours are normal. Heart size is normal. Bones and chest wall: No suspicious bony abnormalities. Soft tissues appear unremarkable. IMPRESSION: No acute cardiopulmonary abnormality is seen. Dictated by: He Taylor M.D. on 09/23/2024 at 9:44 Approved by: He Taylor M.D. on 09/23/2024 at 9:45
[2024-09-23] MEDS: hydroCHLOROthiazide 25 MG TABLET 12.5 MG PO (09:57)
[2024-09-23] MEDS: allopurinoL 100 MG TABLET 300 MG PO (09:57)
[2024-09-23] MEDS: METOPROLOL ER 25 MG TABLET PO (09:57)
[2024-09-23] MEDS: ATORVASTATIN 20 MG TABLET 40 MG PO (09:57)
[2024-09-23] MEDS: METFORMIN HCL 500 MG TABLET PO (09:57)
[2024-09-23] MEDS: DONEPEZIL 5 MG TABLET 10 MG PO (09:57)
[2024-09-23] MEDS: lisinopriL 10 MG TABLET PO (09:58)
--- NOTE | 2024-09-23 11:52 | PC.NURSE ---
0830 pt alert and oriented x4. Does not remember taking benedryl or events leading up to hospitalization. Up independently in room, steady on feet. Call light in reach. cares continue 1200 IV out, discussed antibiotics, follow up care, when to return if symptoms worsen, medication interactions, activity and diet. No further questions. Patient wheeled out via w/c by PCT and accompanied by to private vehicle.
--- NOTE | 2024-09-23 13:43 | CM.DANOTE ---
Patient is a 79 yo male who was admitted OBS Status on 09/23/24 today for AMS. Pt has M[employer] and [employer] COMM SUPP for insurance and his PCP is Dr. Brandi Zhu. EMR was reviewed. Per MD, pt with hx of mild dementia, DM, some ETOH use and admitted for observation from confusion likely for medication interaction with benadryl. Imaging and labs normal and pt medically stable to d/c home today. SW observed pt ambulating independently in room and per RN pt back to baseline alert and oriented and appropriate and no concerns at this time. Patient lives in [place] with his and is mostly independent at baseline and does not use DME for ambulation and spouse assists with shopping and chores. Pt with no recent admissions to the hospital. Plan: Patient discharged home this morning via spouse POV and no further SW needs at this time. RICK Bass Discharge Planning/Care Management Advanced directive, confirm from FAMILY Start: 09/23/24 04:16 Freq: Q24H Status: Discharge Protocol: Document 09/23/24 04:16 AT (Rec: 09/23/24 04:24 AT [id number]) Advance Directive, confirm on record Time 04:24 Person contacted self Copy received No
== END 2024-09-23 12:08 | disposition home or self-care (01) ==
LOC: ED 23:24 → AC 09-23 03:30
PROVIDERS: Admitting Provider Internal Medicine; Emergency Provider Emergency Medicine; PCP Family Medicine; Referring Provider Emergency Medicine; Visit Provider Internal Medicine
DX: R41.82 Altered mental status, unspecified (principal); N40.1 Benign prostatic hyperplasia with lower urinary tract symptoms; F03.A0 Unspecified dementia, mild, without behavioral disturbance, psychotic disturbance, mood disturbance, and anxiety; N13.8 Other obstructive and reflux uropathy; E78.49 Other hyperlipidemia; I10 Essential (primary) hypertension; E11.9 Type 2 diabetes mellitus without complications; M10.9 Gout, unspecified; J40 Bronchitis, not specified as acute or chronic; Z87.891 Personal history of nicotine dependence; Z79.84 Long term (current) use of oral hypoglycemic drugs
CPT/HCPCS: 0241U; 36415; 70450; 71046; 80053; 80305; 80320; 81001; 82962; 83690; 85025; 99284; G0378

== ENCOUNTER 2025-03-09 11:28 | Day surgery (SDC) | payer MEDICARE, OTHER, SELFPAY ==
[2024-09-23 03:39] VITALS: BMI 25.0
--- NOTE | 2025-03-09 | PATH_ITS ---
[facility] Accession Number: [id number] No. of containers..03 Tissue . 01 Material submitted: . PART A: stomach - STOMACH PART B: esophagus - ESOPHAGUS PART C: body - COLON, BX @ 25 . 01 Diagnosis: Part A: STOMACH: Gastric mucosa with no diagnostic alterations. No Helicobacter organisms identified on H/E stain. No intestinal metaplasia, dysplasia, or malignancy identified. . 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 No dysplasia identified. . 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 . Part C: COLON, BX @ 25: Tubulovillous adenoma. No high-grade dysplasia or malignancy identified. [facility] 03/16/2025 1155 Local . 01 Electronically signed: . Dyllan Chandler MD, Pathologist NPI- [id number] . 01 Gross description: . A. The specimen is received in formalin with two patient identifiers and A. Stomach, consists of a single, 0.3 cm in greatest dimension, steele tissue, submitted in toto in cassette A1. . B. Received in formalin with two patient identifiers and B. Esophagus, rule out Loyola's, and consists of a single, 0.3 cm in greatest dimension white soft tissue, submitted in toto in cassette B1. . C. Received in formalin with two patient identifiers and C. Biopsy at 25, and consists of a 0.5 x 0.4 x 0.1 cm aggregate of steele to green soft tissue fragments, which are filtered and entirely submitted in cassette C1. ([id number]) /MRV 03/16/2025 1155 Local . 01 Pathologist provided ICD-10: D12.6, K22.70 . 01 CPT . 693489, 514960, 754969 Specimen Comment: A courtesy copy of this report has been sent to [phone] Performed at: [address] [id number] MD Dyllan Chandler MD Phone: [phone]
[2025-03-09 11:56] LABS: POC Glucose 113 mg/dL (70-99)
[2025-03-09] MEDS: LACTATED RINGERS 1,000 ML 42 ML IV (11:57)
[2025-03-09 11:58] VITALS: BP 130/72; PULSE 62; RESP 14; TEMP 36.9; O2SAT 98
--- NOTE | 2025-03-09 11:59 | PM.HP.IH.1 ---
History of Present Illness History of Present Illness Date Patient Seen: 03/09/25 Chief complaint: EGD & Colonoscopy w/poss bx's Narrative: Cervical globus sensation of longstanding. Rule out mechanical cause. In addition need for colorectal cancer screening [facility] Medical History B12 deficiency Encounter for initial annual wellness visit (AWV) in Medicare patient Cognitive decline Hearing loss Dupuytren contracture (~2014) Shoulder pain (~2019) Fractures (~1969) Chicken pox (~1954) Tinnitus (~1999) Cataracts, bilateral (~2020) Benign essential HTN (~2014) Hyperlipidemia IFG (impaired fasting glucose) BPH w urinary obs/LUTS Elevated PSA (~2021) Male circumcision Gout (~1989) Arthritis Surgical History Anesthesia History of cataract removal with insertion of prosthetic lens (~06/2022) History of tonsillectomy (~1954) H/O repair of rotator cuff (~09/2021) Family History Father Cancer Social History marital status: household members: spouse lives independently: Yes occupational status: previously employed Smoking Status: Never smoker Tobacco: How many years used: 30 alcohol intake: former substance use type: does not use Meds Home Medications and Allergies Home Medications ?Medication ?Instructions ?Recorded ?Confirmed ?Type cholecalciferol (vitamin D3) 50 2,000 unit PO DAILY 11/09/23 01/16/25 History mcg (2,000 unit) capsule (Vitamin D3) mecobalamin (vitamin B12) 1,000 1,000 mcg PO DAILY 11/09/23 01/16/25 History mcg disintegrating tablet,sublingual allopurinol 300 mg tablet 300 mg PO DAILY #100 tabs 05/13/24 03/09/25 Rx atorvastatin 40 mg tablet 40 mg PO DAILY #100 tabs 05/13/24 03/09/25 Rx alfuzosin 10 mg tablet,extended 10 mg PO DAILY 09/23/24 03/09/25 History release 24 hr colchicine 0.6 mg capsule 0.6 mg PO DAILY PRN Gout 09/26/24 03/09/25 History prophylaxis memantine 5 mg tablet See Rx Instructions PO DAILY #180 11/10/24 03/09/25 Rx tabs lisinopril 20 0.5 tab PO DAILY #90 tabs 11/26/24 03/09/25 Rx mg-hydrochlorothiazide 25 mg tablet donepezil 10 mg tablet 10 mg PO ONCE PM #90 tabs 12/29/24 03/09/25 Rx metoprolol succinate 25 mg 25 mg PO DAILY #90 tabs 02/23/25 03/09/25 Rx tablet,extended release 24 hr metformin 500 mg tablet 500 mg PO BID blood sugars #180 03/04/25 03/09/25 Rx tabs Allergies Allergy/AdvReac Type Severity Reaction Status Date / Time No Known Drug Allergies Allergy Verified 03/09/25 11:46 Exam Narrative Exam Narrative: Oropharynx free of lesions Objective Labs Labs: Laboratory Results - last 24 hr 03/09/25 11:51 POC Whole Bld Glucose 113 H Assessment & Plan Assessment & Plan narrative: History of globus rule out mechanical lesion and need for colorectal cancer screening. Risks, benefits, alternatives have been explained. Time-Based Coding :: [TOTAL MINUTES] spent with patient and on the chart (including review of chart, obtaining history, exam, reviewing outside data, placing orders, documenting exam and treatment plan, and counseling patient) on [DATE]. [employer] Document charge(s): No
--- NOTE | 2025-03-09 12:06 | PM.OP.EC ---
Operative Date/Time/Diagnoses Date of procedure: 03/09/25 Time of procedure: 12:47 Pre-op diagnosis: See indication and findings Post-op diagnosis: same Procedure & Clinicians Study performed: EGD and colonoscopy Same procedure(s) as scheduled: Yes Indications: Colorectal cancer screening and globus sensation/dysphagia Surgeon: Darrell Troncoso Procedure Notes Procedure in detail: After informed consent was obtained the patient was placed in left lateral decubitus position. The video EGD scope was placed into the oropharynx and with the patient's help swallowed into the esophagus. The esophagus stomach duodenal were carefully examined. On withdrawal, retroflexed view the GE junction was performed. The scope was removed. The patient tolerated procedure well. The patient was then turned in the colonoscope substituted. This is easily passed the cecum. Preparation was good. On slow withdrawal mucosa was carefully examined. The scope was removed. The patient tolerated procedure well. Blood loss none Complications none Sedation mac Findings EGD 1. 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 Biopsies taken were for confirmation 2. 2 mm sliding hiatal hernia 3. Pre-pyloric hematin flecks and possible inflammation biopsies taken to rule out underlying Helicobacter 4. Normal duodenal bulb and sweep Colonoscopy 1. 8 mm semi sessile polyp at 25 cm Jumbo snared and and removed 2. Otherwise negative colonoscopy to cecum Will follow up on biopsies with the patient. Unless the polyp is quite surprising in pathology this would most likely be the patient's last colonoscopy
[2025-03-09 12:50] VITALS: BP 93/59; PULSE 76; RESP 12; TEMP 37.1; O2SAT 96
[2025-03-09 12:54] VITALS: BP 100/60; PULSE 65; RESP 15; O2SAT 96
[2025-03-09 13:07] VITALS: BP 107/61; PULSE 59; RESP 15; TEMP 36.8; O2SAT 99
== END 2025-03-09 14:05 | disposition home or self-care (01) ==
PROVIDERS: PCP Family Medicine; Referring Provider Internal Medicine Gastroenterology; Visit Provider Internal Medicine Gastroenterology
PROC: 0DJ08ZZ Inspection of Upper Intestinal Tract, Via Natural or Artificial Opening Endoscopic (ICD-10-PCS; CPT 45385; principal; 2025-03-09 14:00)
PROC: 0DJD8ZZ Inspection of Lower Intestinal Tract, Via Natural or Artificial Opening Endoscopic (ICD-10-PCS; CPT 45378; 2025-03-09 14:00)
DX: Z12.11 Encounter for screening for malignant neoplasm of colon (principal); K22.70 Barrett's esophagus without dysplasia; D12.6 Benign neoplasm of colon, unspecified; R47.02 Dysphasia; K44.9 Diaphragmatic hernia without obstruction or gangrene; E11.9 Type 2 diabetes mellitus without complications; I10 Essential (primary) hypertension; E78.5 Hyperlipidemia, unspecified; N40.1 Benign prostatic hyperplasia with lower urinary tract symptoms; N13.8 Other obstructive and reflux uropathy; E53.8 Deficiency of other specified B group vitamins; Z79.84 Long term (current) use of oral hypoglycemic drugs
CPT/HCPCS: 45385; 43239; 82962; J2405; J2704

== ENCOUNTER → 2025-07-03 10:11 | Outpatient (CLI) | payer MEDICARE, OTHER, SELFPAY ==
[2024-09-23 03:39] VITALS: BMI 25.0
[2025-07-03 11:56] LABS: Alanine Aminotransferase 25 IU/L (<50); Albumin 4.1 g/dL (3.5-5.0); Albumin Globulin Ratio 2.1 (1.0-2.8); Alkaline Phosphatase 70 U/L (38-126); Blood Urea Nitrogen 16 mg/dL (9-20); Calcium 9.7 mg/dL (8.4-10.2); Carbon Dioxide 28 mmol/L (22-32); Chloride 102 mmol/L (98-107); Cholesterol 112 mg/dL (140-199); Estimated Glomerular Filt Rate > 60 mL/min (>60); Globulin 2.0 g/dL (1.7-4.1); Glucose 117 mg/dL (70-99); HDL Cholesterol 63 mg/dL (40-60); HEMOLYSIS < 15 (0-50); Potassium 3.9 mmol/L (3.4-5.1); Sodium 139 mmol/L (137-145); Total Protein 6.1 g/dL (6.3-8.2); Triglycerides 52 mg/dL (35-150)
[2025-07-03 12:03] LABS: Hemoglobin A1C% w Est Avg Glu 5.9 % (4.0-6.0)
[2025-07-03 12:45] LABS: Hep C Virus Ab w/Reflex Quant NEGATIVE s/c (NEGATIVE)
== END ==
LOC: LAB 10:11
PROVIDERS: PCP Family Medicine; Referring Provider Family Medicine; Visit Provider Family Medicine
DX: Z00.00 Encounter for general adult medical examination without abnormal findings (principal); R73.01 Impaired fasting glucose; I10 Essential (primary) hypertension; E78.5 Hyperlipidemia, unspecified; F03.90 Unspecified dementia, unspecified severity, without behavioral disturbance, psychotic disturbance, mood disturbance, and anxiety
CPT/HCPCS: 36415; 80053; 80061; 83036; 86803